=== PATIENT | female | born 1975 | race Caucasian/White ===

== ENCOUNTER 2019-11-12 08:17 | Emergency (ER) | payer OTHER, BC, SELFPAY ==
[2019-11-12 08:27] VITALS: BP 146/102; PULSE 117; RESP 20; TEMP 36.8; O2SAT 98; BMI 24.9
--- NOTE | 2019-11-12 08:34 | ED_ITS ---
HPI - Back Pain/Injury General: Chief Complaint: Back Pain/Injury Stated Complaint: back pain Time Seen by Provider: 11/12/19 08:24 History of Present Illness: HPI Narrative: Patient developed severe right flank pain sudden onset last night. Did work at the [facility] [employer] last night. 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 History of chronic back problems. Patient says this feels like it is different. Feels like it is in her kidney. Denies any dysuria hematuria urgency. Has a history of left kidney donation. History of partial hysterectomy. Denies any trauma. MD elicited complaint: back pain Onset (ago): hour(s) Timing: constant and progressively worsening Severity: moderate Pain scale (0-10): 7 Similar Symptoms Previously: No Quality: sharp and aching Location: right flank Radiation: none Exacerbating factors: movement Relieving factors: none Associated symptoms: Reports no associated symptoms; Deny abdominal pain, chills, fever(s), nausea or vomiting Review of Systems Const: Denies: fever, chills or body aches Eyes: Denies: change in vision or blurry vision ENMT: Denies: throat pain or nasal congestion Card: Denies: chest pain or shortness of breath on exertion Resp: Denies: shortness of breath, productive cough or non-productive cough GI: Denies: abdominal pain, nausea or vomiting : Reports: other (Right flank pain) Musc: Denies: extremity pain Skin/Breast: Denies: rash Neuro: Denies: headache Psych: Denies: anxiety or depression Newton/Lymph: Denies: easy bruising PFSH ED PFSH: Social History Smoking and tobacco status: current every day smoker Physical Exam Const: COMMON NORMALS: no apparent distress, average body habitus and oriented x3 HENMT: COMMON NORMALS: normocephalic HEAD & SCALP: normal to inspection and normocephalic FACE & SINUS: normal facial exam Eye: COMMON NORMALS: conjunctivae normal GENERAL EYE: normal appearance of both eyes CONJUNCTIVA: Yes conjunctivae normal Neck/C-Spine: COMMON NORMALS: no JVD Chest: COMMONS NORMALS: inspection of chest normal Resp: COMMON NORMALS: normal respiratory effort and clear to auscultation bilaterally AUSCULTATION: clear to auscultation bilaterally Cardio: COMMON NORMALS: no JVD, regular rate and regular rhythm RATE: regular rate RHYTHM: regular rhythm GI: COMMON NORMALS: normal to inspection, nondistended, normoactive bowel sounds : BLADDER/KIDNEY EXAM: Yes CVA tenderness Back/Pelvis: GENERAL BACK: Yes CVA tenderness CVA tenderness: right Extremity: COMMON NORMALS: normal to inspection and full ROM Neuro: COMMON NORMALS: oriented x3 Course Vital Signs: Vital signs: Vital Signs Temperature 98.3 F 11/12/19 08:27 Pulse Rate 117 H 11/12/19 08:27 Respiratory Rate 20 H 11/12/19 08:27 Blood Pressure 146/102 11/12/19 08:27 Pulse Oximetry 98 11/12/19 08:27 Coding Level of Care Code ED Clinical Data Abstractor for Shirley Madrid
--- NOTE | 2019-11-12 08:38 | CT_ITS ---
WS: [id number] CT ABDOMEN AND PELVIS NONCONTRAST HISTORY: right flank pain, left kidney donation- hx of hysterectomy TECHNIQUE: Imaging performed through the abdomen and pelvis. Coronal and sagittal reformats are submi tted. All CT scans at [facility] use at least one of these dose optimization techniques: automated exposure control; mA and/or kV adjustment per patient size (includes targeted exams where d ose is matched to clinical indication); or iterative reconstruction. DLP: 950.47 mGy.cm COMPARISON: 01/12/2014 Lower thorax: Mild emphysematous changes at the lung bases. 3 mm nodule along the inferior RIGHT fiss ure in the periphery of the RIGHT lower lobe. Small hiatal hernia. Liver: Normal, no mass or intrahepatic dilatation. Gallbladder: Unremarkable. Pancreas: Normal. Spleen: Normal. Adrenal glands: Normal. Right kidney: Normal size kidney. No renal stones or perinephric inflammation. The RIGHT renal pelvis is very slightly more prominent than it was on the prior study from 2013. No ureteral stone or infla mmation. Left kidney: Status post nephrectomy. Abdominal aorta and IVC are unremarkable. No free fluid, intraperitoneal air or significant lymphadenopathy. GI tract: Prior appendectomy. Mild fecal retention. There are surgical sutures associated with the ce cum probably from the prior appendectomy. Abdominal wall: Intact. Pelvis: Prior hysterectomy. No free fluid in the pelvis. Urinary bladder is only partially distended resulting in mild thickening of the bladder wall. No adjacent inflammation. Bilateral ovarian cysts. The largest on the LEFT measures 2.8 x 1.8 cm. Osseous structures: Mild RIGHT convex curvature lumbar spine. No fractures or bone destruction. Spina bifida occulta at L5. CT/CT kidney stone [id number] IMPRESSION: 1. No RIGHT renal calcification or obstruction. No ureteral calcifications. 2. Prior appendectomy and hysterectomy. 3. No free fluid or ascites. 4. Small bilateral ovarian cysts. 5. Prior LEFT nephrectomy.
[2019-11-12] MEDS: ondansetron 2 mg/ML SDV 2 mL 4 MG IVP (08:54)
[2019-11-12] MEDS: sodium chloride 0.9% 1,000 ML 999 ML IV (08:54)
[2019-11-12] MEDS: ketorolac 30 mg/mL INJ IVP (08:54)
[2019-11-12 09:02] LABS: Basophils # 0.1 10^3/uL (0.0-0.1); Basophils % 0.7 %; Eosinophils # 0.4 10^3/uL (0.0-0.8); Eosinophils % 5.9 %; Hematocrit 43.3 % (37.0-47.0); Lymphocytes # 3.4 10^3/uL (0.8-4.8); Lymphocytes % 49.9 %; Mean Corpuscular HGB Conc 32.3 g/dL (30.0-36.0); Mean Corpuscular Hemoglobin 29.2 pg (28.0-34.0); Mean Corpuscular Volume 90.2 fL (81-99); Mean Platelet Volume 11.2 fL (7.4-10.4); Monocytes # 0.5 10^3/uL (0.2-0.9); Neutrophils # 2.5 10^3/uL (1.8-7.7); Neutrophils % 36.4 %; Nucleated Red Blood Cells % 0 %; Platelet Count 255 10^3/cmm (130-400); Red Cell Distribution Width 13.2 % (12.1-15.1); White Blood Count 6.8 10^3/uL (4.0-10.0)
[2019-11-12 09:02] LABS: Bilirubin Urine Neg (NEGATIVE); Blood Urine Neg (Negative); Glucose Urine UA Norm (Normal); HCG Qualitative Urine. Negative (Negative); Ketones Urine Negative (Negative); Leukocyte Esterase Urine Negative (Negative); Nitrate Urine Negative (Negative); Protein Urine Neg (Negative); Urine Appearance Clear (CLEAR); Urine Color Straw (Yellow); Urobilinogen Urine Norm (Negative)
[2019-11-12 09:09] LABS: Add Urine Culture? No; Bacteria Urine 1+; Mucus Urine TRACE; Squamous Epithelial Cell Urine 15-25 (0-5); WBC Urine 0-4 /hpf (0-5)
[2019-11-12 09:17] LABS: Alanine Aminotransferase 13 U/L (0-33); Albumin Level 4.8 g/dL (3.5-5.2); Alkaline Phosphatase 80 IU/L (35-105); Anion Gap 19.9 (5-19); Aspartate Amino Transferase 17 U/L (0-32); Blood Urea Nitrogen 11 mg/dL (6-20); Calcium 9.9 mg/dL (8.5-10.5); Carbon Dioxide 22 mmol/L (22-29); Chloride 102 mmol/L (98-107); Globulin 2.8 g/dL (1.3-4.6); Glomerular Filtration Rate 60.8 mL/min (90-130); Glucose 100 mg/dL (65-115); Lipase 31 U/L (13-60); Osmolality Calculated 286 mOsm/kg (285-295); Potassium 3.9 mmol/L (3.5-5.1); Sodium 140 mmol/L (136-145); Total Bilirubin 0.3 mg/dL (0.15-1.2); Total Protein 7.6 g/dL (6.6-8.7)
[2019-11-12 09:42] VITALS: BP 109/70; PULSE 81; RESP 17; O2SAT 98
== END 2019-11-12 09:43 | disposition home or self-care (01) ==
PROVIDERS: Emergency Provider Nurse Practitioner Family; Family Provider Nurse Practitioner; PCP Nurse Practitioner
DX: M54.5 Low back pain (principal); F17.200 Nicotine dependence, unspecified, uncomplicated; Z52.4 Kidney donor
CPT/HCPCS: 12345; 36415; 74176; 80053; 81001; 81025; 83690; 85025; 96360; 96361; 96374; 96375; 99283; 99284; J1885; J2405; J7030

== ENCOUNTER → 2020-03-03 14:28 | Outpatient (BNVA) | payer BC, SELFPAY | PROVIDERS: Family Provider Nurse Practitioner; PCP Nurse Practitioner; Visit Provider Nurse Practitioner Family | DX: J02.9 Acute pharyngitis, unspecified (principal) | CPT/HCPCS: 87071; 87880 ==

== ENCOUNTER → 2020-03-15 11:40 | Outpatient (BNVA) | payer OTHER, BC, SELFPAY | PROVIDERS: Family Provider Nurse Practitioner; PCP Nurse Practitioner; Visit Provider Specialist | DX: G43.909 Migraine, unspecified, not intractable, without status migrainosus (principal); M79.7 Fibromyalgia | CPT/HCPCS: 20550; 99214; J1030; J3490 ==

== ENCOUNTER 2020-06-12 12:40 | Outpatient (CLI) | payer OTHER, SELFPAY ==
--- NOTE | 2020-06-12 12:49 | MM_ITS ---
WS: [id number] BILATERAL DIGITAL SCREENING MAMMOGRAPHY WITH CAD CLINICAL INFORMATION: SCREENING HISTORY: Screening mammogram. No current complaints. COMPARISON: [id number] TECHNIQUE: Bilateral CC and MLO views. FINDINGS: The breasts are composed of heterogeneous fibroglandular density tissue, which can limit the detectio n of small underlying mass lesions. No suspicious mass, asymmetry, calcifications, or architectural d istortion. No evidence of malignancy. MM/[place] [id number] IMPRESSION: BI-RADS: 1-Negative FOLLOW UP: 1 Year Follow-up Recommend return to annual screening mammography.
== END 2020-06-12 12:41 | disposition home or self-care (01) ==
LOC: RADSHAW 12:42
PROVIDERS: PCP Nurse Practitioner; Visit Provider Nurse Practitioner
DX: Z12.31 Encounter for screening mammogram for malignant neoplasm of breast (principal)
CPT/HCPCS: 77067

== ENCOUNTER → 2020-11-02 08:06 | Outpatient (BNVA) | payer OTHER, SELFPAY | PROVIDERS: PCP Nurse Practitioner; Referring Provider Emergency Medicine Emergency Medical Services; Visit Provider Specialist | DX: M25.511 Pain in right shoulder (principal) | CPT/HCPCS: 73030 ==

== ENCOUNTER 2020-11-21 14:48 | Outpatient (CLI) | payer OTHER, SELFPAY ==
--- NOTE | 2020-11-21 15:15 | MR_ITS ---
WS: [id number] MRI RIGHT SHOULDER HISTORY: M25.511 - Pain in right shoulder COMPARISON: 03/20/2018. Radiograph 11/02/2020 TECHNIQUE: Multiplanar sequences of the shoulder joint are submitted. Very mild hypertrophic changes and joint space narrowing of the AC joint. Very minimal osteophytosis along the distal undersurface of the acromion. Slight encroachment upon the supraspinatus tendon and muscle. Small amount of fluid in the subdeltoid bursa. No os acromion. Biceps tendon remains in harlan l position. The tendon is thin with mild increased signal distal to the bicipital groove. No rotator cuff tear is identified. There is no muscle atrophy or edema. There is mild narrowing of t he coracohumeral interval by osteophytes. There is mild encroachment upon the biceps tendon and subsc apularis tendon. No significant amount of fluid or ganglion cyst in the subscapularis recess. No labr al tear. MR/MR shoulder RT wo con* [id number] IMPRESSION: 1. Mild AC joint arthritis. No progression since 2018. 2. No rotator cuff tear. 3. Mild thinning of the biceps tendon with tendinopathy. No displacement. 4. Narrowing of the coracohumeral interval causing mild encroachment upon the biceps tendon and subscapularis tendon. 5. Very small amount of fluid in the subdeltoid bursa.
== END 2020-11-21 14:49 | disposition home or self-care (01) ==
LOC: RADSHAW 14:50
PROVIDERS: PCP Nurse Practitioner; Visit Provider Specialist
DX: M13.811 Other specified arthritis, right shoulder (principal)
CPT/HCPCS: 73221

== ENCOUNTER → 2021-01-31 14:08 | Outpatient (BNVA) | payer OTHER, SELFPAY | PROVIDERS: PCP Nurse Practitioner; Visit Provider Specialist | DX: G43.711 Chronic migraine without aura, intractable, with status migrainosus (principal); M54.5 Low back pain; Z87.891 Personal history of nicotine dependence | CPT/HCPCS: 99214 ==

== ENCOUNTER 2021-03-01 14:17 | Outpatient (CLI) | payer OTHER, SELFPAY ==
--- NOTE | 2021-03-01 17:30 | MR_ITS ---
WS: [id number] MRI LUMBAR SPINE NONCONTRAST TECHNIQUE: Sagittal T1, T2 and STIR imaging. Axial T1 and T2 imaging. CLINICAL INFORMATION: M54.9 - Dorsalgia, unspecified COMPARISON: None. FINDINGS: Counting performed from the craniocervical junction. S1 is partially lumbarized. Mild lumbar curve. No acute compression. No high-grade central canal stenosis. L1-L2: Normal L2-L3: No significant disc bulging. Spinal canal and foramen are patent. L3-L4: Mild right and no significant left foraminal narrowing. Spinal canal is patent. L4-L5: Minimal annular bulging. Mild right and no significant left foraminal narrowing. Mild facet ar thropathy. L5-S1: Mild disc osteophyte complex with endplate ridging. Slight effacement of the ventral thecal sa c with slight contact of the traversing S1 nerve roots. Mild left and no significant right foraminal narrowing. Moderate facet arthropathy. S1-S2: S1 is lumbarized. No significant disc bulging. Spinal canal and foramen are patent. Visualized pelvic bony structures: Normal. Paravertebral soft tissues: Normal. MR/MR lumbar spine wo con* [id number] IMPRESSION: 1. Mild lumbar curve. No acute compression. No high-grade central canal stenos is. 2. S1 is lumbarized. Recommend plain film correlation prior to surgical interv ention. 3. Mild disc bulging L5-S1 with osteophytic ridging. Slight contact of the tra versing S1 nerve roots bilaterally. Mild left L5-S1 bony foraminal narrowing. 4. Mild right L4-5 foraminal narrowing. 5. Mild right L3-4 foraminal narrowing. 6. Mild to moderate facet arthropathy L4-L5 and L5-S1.
== END 2021-03-01 14:18 | disposition home or self-care (01) ==
LOC: RADSHAW 14:19
PROVIDERS: PCP Nurse Practitioner; Visit Provider Specialist
DX: M47.816 Spondylosis without myelopathy or radiculopathy, lumbar region (principal); M47.817 Spondylosis without myelopathy or radiculopathy, lumbosacral region; M51.27 Other intervertebral disc displacement, lumbosacral region; Q76.49 Other congenital malformations of spine, not associated with scoliosis
CPT/HCPCS: 72148

== ENCOUNTER 2021-03-13 13:05 | Outpatient (RCR) | payer OTHER, SELFPAY | END 2021-04-10 23:59 | disposition home or self-care (01) | LOC: SPT 13:05 | PROVIDERS: PCP Nurse Practitioner; Referring Provider Nurse Practitioner; Visit Provider Nurse Practitioner | DX: M54.5 Low back pain (principal) | CPT/HCPCS: 97110; 97161; G0283 ==

== ENCOUNTER 2021-07-07 10:59 | Emergency (ER) | payer OTHER, BC, SELFPAY ==
--- NOTE | 2021-07-07 | CTR_ITS ---
PROCEDURE INFORMATION: Exam: CT Abdomen And Pelvis With Contrast Exam date and time: 07/07/2021 2:27 PM Age: 45 years old Clinical indication: Abdominal pain. Prior hysterectomy and kidney donation. Epigastric/chest pain. TECHNIQUE: Imaging protocol: Computed tomography of the abdomen and pelvis with contrast. Radiation optimization: All CT scans at this facility use at least one of these dose optimization techniques: automated exposure control; mA and/or kV adjustment per patient size (includes targeted exams where dose is matched to clinical indication); or iterative reconstruction. Contrast material: VISI 320; Contrast volume: 95 ml; Contrast route: INTRAVENOUS (IV); COMPARISON: CT kidney stone [id number] 11/12/2019 9:04 AM RADIATION DOSE METRICS: Total DLP (mGy-cm): 1513.55 FINDINGS: Liver: The liver is enlarged measuring 17.8 cm. Gallbladder and bile ducts: The gallbladder is unremarkable. Pancreas: The pancreas is unremarkable. Spleen: The spleen is unremarkable. Adrenal glands: The adrenal glands are unremarkable. Kidneys and ureters: Status post left nephrectomy. The right kidney is unremarkable. Stomach and bowel: The stomach and small bowel are unremarkable.. Moderate gas and stool in the colon; query constipation. Appendix: The appendix has been removed. Intraperitoneal space: No free intraperitoneal air is seen. Vasculature: No abdominal aortic aneurysm. Lymph nodes: No retroperitoneal lymphadenopathy. Urinary bladder: The bladder is distended with urine. Reproductive: Probable complex or corpus luteum cyst in the right ovary measuring 1.8 cm. There is a separate probable complex or hemorrhagic cyst in the right ovary measuring 1.6 cm. Probable simple cyst in the right ovary measuring 1.3 cm. Status post hysterectomy. Bones/joints: No acute fracture is identified. CT/CT abdomen pelvis w con* [id number] IMPRESSION: 1. Probable complex, hemorrhagic or corpus luteum cysts in the right ovary. Separate probable simple cyst in the right ovary. Consider pelvic ultrasound to better characterize. 2. Moderate gas and stool in the colon; query constipation. 3. Hepatomegaly. 4. Please see dedicated CT of the chest for associated findings. Radiation Dose CTDIVOL = (mGy): DLP = 1513.55 (mGy-cm)
--- NOTE | 2021-07-07 | CTR_ITS ---
PROCEDURE INFORMATION: Exam: CT Chest Without Contrast; Diagnostic Exam date and time: 07/07/2021 2:09 PM Age: 45 years old Clinical indication: Sternal or substernal pain. Complains of chest/epigastric pain with abnormal chest x-ray. TECHNIQUE: Imaging protocol: Diagnostic computed tomography of the chest without contrast. Radiation optimization: All CT scans at this facility use at least one of these dose optimization techniques: automated exposure control; mA and/or kV adjustment per patient size (includes targeted exams where dose is matched to clinical indication); or iterative reconstruction. COMPARISON: CT chest w con* [id number] 07/07/2021 1:41 PM RADIATION DOSE METRICS: Total DLP (mGy-cm): 518.006 FINDINGS: Lungs: Solid pulmonary nodule in the right lower lobe measuring 3.7 mm (image 42). Solid subpleural pulmonary nodule in the right lower lobe measuring 3 mm (image 43). Solid subpleural pulmonary nodule at the right base measuring 3.4 mm (image 43). Subpleural pulmonary nodule in the right upper lobe measuring 2.9 mm (image 18). No pulmonary consolidation.. No pulmonary mass. Pleural spaces: No pleural effusion.. No pneumothorax. Heart: No pericardial effusion. Aorta: No thoracic aortic aneurysm. Lymph nodes: No significant mediastinal lymphadenopathy. Diaphragm: Small hiatal hernia. Bones/joints: No acute fracture is identified. CT/CT chest con [id number] IMPRESSION: 1. Solid pulmonary nodules measuring up to 3.7 mm. As per Fleischner Society 2017 guidelines for follow-up and management of pulmonary nodules: For patients at low risk (minimal or absent history of smoking and of other known risk factors), no routine follow-up. For patient at high risk (history of smoking or of other known risk factors), recommend optional CT at 12 months. 2. Please see dedicated CT of the abdomen and pelvis for associated findings. Radiation Dose CTDIVOL = (mGy): DLP = 518.006 (mGy-cm)
[2021-07-07 11:11] VITALS: BP 128/62; PULSE 81; RESP 22; TEMP 37; O2SAT 97; BMI 30.5
--- NOTE | 2021-07-07 11:18 | ED_ITS ---
HPI - Chest Pain General: Chief Complaint: Chest Pain Stated Complaint: cp Time Seen by Provider: 07/07/21 11:18 History of Present Illness: HPI narrative: Ms. Monterroso is a 45-year-old lady with significant past medical history of tobaccoism (quit smoking a number of years ago) and hyperlipidemia not on medication who presents to the emergency department due to chest pain. She reports symptom onset yesterday while at rest watching her daughter's wedding. She describes midsternal sharp pain with radiation of the shoulder and numbness feeling in her left arm. There was mild associated shortness of breath, chills, and nausea without vomiting. She reports that she has not had a frequent history of chest pain and has no known cardiac history with exception of a rapid heart rate of unclear etiology as a child. Overall the course of symptoms has persisted. Intensity is moderate. No known specific exacerbating or alleviating factors. No other changes in health reported. Review of Systems General: Reports: 10 or more systems reviewed and unremarkable except in HPI and below PFSH ED PFSH: Medical History Chronic migraine without aura, intractable, with status migrainosus Family History Other CAD (coronary artery disease) Cancer Diabetes Hypertension Social History Smoking and tobacco status: former smoker History of recent travel: No Physical Exam Narrative: EXAM NARRATIVE: GENERAL/CONSTITUTIONAL - well-appearing. No acute distress. Eyes - PERRL, no conjunctival injection ENMT - Atraumatic external nose and ears. Moist mucous membranes NECK - supple. trachea midline CARDIOVASCULAR - regular rate and rhythm. No peripheral edema RESPIRATORY -clear to auscultation bilaterally. ABDOMEN/GI - Nontender/Nondistended. MSK - Extremities without obvious deformity or tenderness to palpation SKIN - Warm, Dry NEURO - alert and appropriately oriented. Moves all extremities equally. Course ED course: - Patient was seen and evaluated by me at bedside - Patient placed on cardiac monitors, IV access obtained - Initial evaluation notable for no acute distress, nontoxic appearance. -Symptom treatment ordered - Labs notable for No leukocytosis, no acute metabolic abnormality to explain the patient's symptoms. Delta troponin negative. - Imaging notable for chest x-ray notable for prominence of the right paratracheal stripe, given patient's chest pain in the absence of other acute finding CT as recommended felt to be warranted. CT chest was ordered, unfortunately the patient erroneously received a CT abdomen pelvis, given history of [address] chest performed without contrast. IV fluids ordered. Pulmonary nodules were discussed with the patient. Pelvic cysts/abnormalities were discussed with the patient. Given absence of abdominal symptoms ED ordered pelvic ultrasound not warranted at this time, patient comfortable with outpatient pelvic ultrasound. - Upon serial reexamination after treatment the patient was mildly improved - Based on patient history, evaluation, labs, and imaging as interpreted the most likely cause of the patient's condition is chest pain of unclear etiology. Patient is low risk by heart score - The results of ED evaluation were discussed with the patient including prescriptions and/or symptomatic cares (if applicable) including appropriate and responsible use, followup plan, and return precautions. The patient verbalized understanding and felt safe for discharge. - Patient discharged in satisfactory condition. Vital Signs: Vital signs: Vital Signs Temperature 98.6 F 07/07/21 11:11 Pulse Rate 88 07/07/21 15:26 Respiratory Rate 18 07/07/21 15:26 Blood Pressure 104/68 07/07/21 15:26 Pulse Oximetry 96 07/07/21 15:26 MDM - Chest Pain Medical Records: Attestation: I reviewed the patient's medical records. Lab Data: Attestation: I reviewed the patient's lab results. Labs: Lab Results 07/07/21 07/07/21 07/07/21 11:17 11:17 11:17 WBC 6.4 10^3/uL 10^3/ uL (4.0-10.0) RBC 5.00 10^6/uL 10^6 /uL (4.1-5.3) Hgb 14.3 g/dL g/dL (11.5-15.3) Hct 44.4 % % (37.0-47.0) MCV 88.8 fl fl (81-99) MCH 28.6 pg pg (28.0-34.0) MCHC 32.2 g/dL g/dL (30.0-36.0) RDW 13.9 % % (12.1-15.1) Plt Count 243 10^3/cmm 10^3 /cmm (130-400) MPV 12.6 fL H fL (7.4-10.4) Neut % (Auto) 39.0 % % Lymph % (Auto) 42.7 % % Thomas % (Auto) 10.3 % % Eos % (Auto) 6.6 % % Baso % (Auto) 0.8 % % Neut # (Auto) 2.49 10^3/uL 10^3 /uL (1.8-7.7) Lymph # (Auto) 2.7 10^3/uL 10^3/ uL (0.8-4.8) Thomas # (Auto) 0.7 10^3/uL 10^3/ uL (0.2-0.9) Eos # (Auto) 0.4 10^3/uL 10^3/ uL (0.0-0.8) Baso # (Auto) 0.1 10^3/uL 10^3/ uL (0.0-0.1) Nucleated RBC % (a uto) 0 % % Nucleated RBCs # 0.0 /100WBC /100W BC Sodium 138 mmol/L mmol/L (136-145) Potassium 3.8 mmol/L mmol/L (3.5-5.1) Chloride 104 mmol/L mmol/L (98-107) Carbon Dioxide 20 mmol/L L mmol/ L (22-29) Anion Gap 17.8 (5-19) BUN 20 mg/dL mg/dL (6-20) Creatinine 1.0 mg/dL H mg/dL (0.5-0.9) GFR Calculation 60.5 mL/min L mL/ min (90-130) Glucose 94 mg/dL mg/dL (65-115) Calculated Osmolal ity 288 mOsm/kg mOsm/ kg (285-295) Calcium 8.8 mg/dL mg/dL (8.5-10.5) Total Bilirubin 0.2 mg/dL mg/dL (0.15-1.2) AST 12 U/L U/L (0-32) ALT 11 U/L U/L (0-33) Alkaline Phosphata se 91 IU/L IU/L (35-105) Troponin T Baselin e 6 ng/L ng/L (0-10) Troponin T 120 Min [place] Troponin T NT-Pro-B Natriuret Pep 83 pg/mL pg/mL (0-125) Total Protein 7.4 g/dL g/dL (6.6-8.7) Albumin 4.2 g/dL g/dL (3.5-5.2) Globulin 3.2 g/dL g/dL (1.3-4.6) Lipase 40 U/L U/L (13-60) 07/07/21 13:29 WBC RBC Hgb Hct MCV MCH MCHC RDW Plt Count MPV Neut % (Auto) Lymph % (Auto) Thomas % (Auto) Eos % (Auto) Baso % (Auto) Neut # (Auto) Lymph # (Auto) Thomas # (Auto) Eos # (Auto) Baso # (Auto) Nucleated RBC % (a uto) Nucleated RBCs # Sodium Potassium Chloride Carbon Dioxide Anion Gap BUN Creatinine GFR Calculation Glucose Calculated Osmolal ity Calcium Total Bilirubin AST ALT Alkaline Phosphata se Troponin T Baselin e Troponin T 120 Min [place] 6.00 ng/L ng/L (0-10) Delta Troponin T 0 ABS# ABS# (0-10) NT-Pro-B Natriuret Pep Total Protein Albumin Globulin Lipase EKG Data^: EKG 1: Attestation: I personally reviewed and interpreted this EKG as follows: EKG interpretation date: 07/07/21 EKG interpretation time: 11:16 Interpretation: Twelve-lead EKG shows a regular rhythm at a rate of 77. WI interval 148, QRS duration 109, QTc 423. Normal axis. Interpretation: Sinus rhythm. EKG 2: Attestation: I personally reviewed and interpreted this EKG as follows: EKG interpretation date: 07/07/21 EKG interpretation time: 13:12 Interpretation: Twelve-lead EKG shows a regular rhythm at a rate of 75. WI interval 157, QRS duration 110, QTc 421. Normal axis. Interpretation: Sinus rhythm. Discharge Plan Discharge Patient Disposition: Home Clinical Impression: Chest pain, Multiple pulmonary nodules Condition: Stable Prescriptions: No Action bupropion HCl 300 mg tablet extended release 24 hr 300 mg PO QAM RF: 0 fluoxetine 20 mg capsule 20 mg PO DAILY RF: 0 Aimovig Autoinjector 140 mg/mL auto-injector 140 mg SUBCUT Q30D Qty: 1 RF: 5 sumatriptan succinate [Imitrex] 100 mg Tablet 100 mg PO Q2H PRN (Reason: Headache) RF: 0 promethazine 25 mg Tablet 25 mg PO DAILY PRN (Reason: Nausea) RF: 0 montelukast 10 mg Tablet 10 mg PO DAILY RF: 0 Discharge Orders: Discharge ED (Routine); Ordered 07/07/21 Ordered By: Ap Oconnell Referrals: Mi Li FNP [Primary Care Provider] - Discharge Diet: Usual diet Discharge Activity: Resume usual activity Patient Instructions: Chest Pain (ED) Activity Restrictions/Additional Instructions: Thank you for visiting the emergency department. You were seen and evaluated for chest pain. The exact cause of your symptoms is unclear, based on risk stratification it is safe to have you follow-up as an outpatient for further cardiac evaluation. A number of incidental findings were noted on imaging. You were noted to have multiple pulmonary nodules including a solid pulmonary nodules measuring up to 3.7 mm. Based on your history of smoking radiology guidelines recommend an optional CT scan at 12 months to reassess for stability. Additionally you were noted to have Probable complex, hemorrhagic or corpus luteum cysts in the right ovary. Separate probable simple cyst in the right ovary. I recommend an outpatient pelvic ultrasound which can be ordered by your primary care provider. Please follow-up with your primary care provider. Please follow-up with cardiology. Please return to the emergency department for worsening symptoms or anything else that you are concerned about and feel needs emergency department evaluation. Coding Level of Care Code ED Cro for Shirley Madrid
--- NOTE | 2021-07-07 11:30 | XRR_ITS ---
PROCEDURE INFORMATION: Exam: XR Chest Exam date and time: 07/07/2021 11:30 AM Age: 45 years old Clinical indication: Chest pain/pressure. TECHNIQUE: Imaging protocol: XR of the chest. Views: 1 view. COMPARISON: MR shoulder RT wo con* [id number] 11/21/2020 2:59 PM FINDINGS: Lungs: No pulmonary consolidation. Pleural spaces: No pleural effusion.. No pneumothorax. Heart/Mediastinum: The cardiac silhouette is unremarkable. There is prominence of the right paratracheal stripe which may reflect prominent superimposed vascular structures. No gross evidence of pneumomediastinum. Bones/joints: No gross fracture. XR/XR chest 1V portable [id number] IMPRESSION: There is prominence of the right paratracheal stripe which may reflect prominent superimposed vascular structures. Consider CT chest to further assess if clinically warranted. Radiation Dose CTDIVOL = (mGy): DLP = (mGy-cm)
--- NOTE | 2021-07-07 11:30 | ECG_ITS ---
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
[2021-07-07] MEDS: aspirin 81 mg Chew Tablet 324 MG PO (11:36)
[2021-07-07] MEDS: nitroglycerin 0.4 mg sublingual Tablet SUBLINGUAL ×3 (11:37→12:01)
[2021-07-07 12:01] LABS: Basophils # 0.1 10^3/uL (0.0-0.1); Basophils % 0.8 %; Eosinophils # 0.4 10^3/uL (0.0-0.8); Eosinophils % 6.6 %; Hematocrit 44.4 % (37.0-47.0); Hemoglobin 14.3 g/dL (11.5-15.3); Lymphocytes # 2.7 10^3/uL (0.8-4.8); Lymphocytes % 42.7 %; Mean Corpuscular HGB Conc 32.2 g/dL (30.0-36.0); Mean Corpuscular Hemoglobin 28.6 pg (28.0-34.0); Mean Corpuscular Volume 88.8 fl (81-99); Mean Platelet Volume 12.6 fL (7.4-10.4); Monocytes # 0.7 10^3/uL (0.2-0.9); Monocytes % 10.3 %; Neutrophils # 2.49 10^3/uL (1.8-7.7); Nucleated Red Blood Cells % 0 %; Platelet Count 243 10^3/cmm (130-400); Red Cell Distribution Width 13.9 % (12.1-15.1); White Blood Count 6.4 10^3/uL (4.0-10.0)
[2021-07-07 12:13] LABS: Troponin(5th) Baseline 6 ng/L (0-10)
[2021-07-07 12:23] LABS: Alanine Aminotransferase 11 U/L (0-33); Albumin Level 4.2 g/dL (3.5-5.2); Alkaline Phosphatase 91 IU/L (35-105); Anion Gap 17.8 (5-19); Aspartate Amino Transferase 12 U/L (0-32); Blood Urea Nitrogen 20 mg/dL (6-20); Calcium 8.8 mg/dL (8.5-10.5); Carbon Dioxide 20 mmol/L (22-29); Chloride 104 mmol/L (98-107); Globulin 3.2 g/dL (1.3-4.6); Glomerular Filtration Rate 60.5 mL/min (90-130); Glucose 94 mg/dL (65-115); Lipase 40 U/L (13-60); NT Pro B Type Natriuretic Pept 83 pg/mL (0-125); Osmolality Calculated 288 mOsm/kg (285-295); Potassium 3.8 mmol/L (3.5-5.1); Sodium 138 mmol/L (136-145); Total Bilirubin 0.2 mg/dL (0.15-1.2); Total Protein 7.4 g/dL (6.6-8.7)
--- NOTE | 2021-07-07 12:53 | PC.NURSE ---
GI cocktail and Toradol held for now due to pt sleeping.
[2021-07-07] MEDS: lidocaine 2% viscous 15 ML, aluminum-mag hydrox-simethicon 30 ML, sucralfate oral liq 1 GM PO (13:13)
[2021-07-07] MEDS: ketorolac 30 mg/mL INJ 15 MG IVP (13:14)
--- NOTE | 2021-07-07 13:30 | ECG_ITS ---
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
[2021-07-07 13:52] VITALS: BP 143/85; PULSE 78; RESP 18; O2SAT 98
[2021-07-07 14:02] LABS: Troponin 5 2HR Delta 0 ABS# (0-10)
[2021-07-07 15:26] VITALS: BP 104/68; PULSE 88; RESP 18; O2SAT 96
--- NOTE | 2021-07-11 10:04 | DCPLANNER ---
workshop manager had message to schedule an outpatient stress test for patient. Patient has [employer] insurance, porter sample case is unable to schedule a stress test, porter sample case can refer [facility] to [facility], and if [facility] feels that patient needs a stress test, then [facility] can order a stress test. workshop manager called [facility], spoke with Jeanine, gave clinic patients information. A follow up appointment was scheduled for Friday, July 25, 2021 at 9:15 with Doroteo Musa. workshop manager called patient and explained all of this to the patient, and gave patient the appointment information. workshop manager emailed all of patients information to Lulu with [facility], so that the authorization process can be started.
--- NOTE | 2021-08-08 15:30 | DCPLANNER ---
Patient had a follow up appointment scheduled for 07.25.21 with [facility] - patient did attend appointment.
== END 2021-07-07 15:26 | disposition home or self-care (01) ==
PROVIDERS: Emergency Provider Emergency Medicine; PCP Nurse Practitioner
DX: R07.9 Chest pain, unspecified (principal); R91.8 Other nonspecific abnormal finding of lung field; Z87.891 Personal history of nicotine dependence
CPT/HCPCS: 36415; 71045; 71250; 71260; 80053; 83690; 83880; 84484; 85025; 93005; 96374; 99283; J1885

== ENCOUNTER 2021-07-15 20:28 | Emergency (ER) | payer OTHER, BC, SELFPAY ==
[2021-07-15] VITALS (39 sets, daily range): BP systolic 92–129; BP diastolic 44–85; PULSE 125; RESP 16; TEMP 38.7; O2SAT 92–99
--- NOTE | 2021-07-15 20:46 | ED_ITS ---
Documented by User: Ap Oconnell MD 07/21/21 01:03 HPI - COVID General: Chief Complaint: COVID symptoms Stated Complaint: Chest pain, Fever, sore throat, Headach Time Seen by Provider: 07/15/21 20:46 Triage information: Has fever, cough or shortness of breath . Exposure to COVID + person last 14 days History of Present Illness: HPI Narrative: Ms. Monterroso is a 45-year-old lady with significant past medical history of fibromyositis who presents to the emergency department due to generalized symptoms. Symptom onset was subacute approximately 2 days ago. She endorses headache, mild associated luis eduardo tosensitivity consistent with prior headaches, sore throat, cough, nausea and vomiting. Since symptom onset overall the course is worsening. She has tried pthb-wsp-opodkme medications without significant relief. Additionally she has tried Imitrex. She does have sick exposures but is not tested positive for Covid. No other specific exacerbating or relieving factors identified. COVID Results: SARS-CoV-2 Antigen (Rapid) Negative (Negative) 07/15/21 21:34 07/15/21 Review of Systems General: Reports: 10 or more systems reviewed and unremarkable except in HPI and below PFSH ED PFSH: Medical History Chronic migraine without aura, intractable, with status migrainosus Family History Other CAD (coronary artery disease) Cancer Diabetes Hypertension Social History Smoking and tobacco status: former smoker History of recent travel: No Physical Exam Narrative: EXAM NARRATIVE: GENERAL/CONSTITUTIONAL -somewhat ill-appearing. No acute distress. Eyes - PERRL, no conjunctival injection ENMT -bmild posterior pharyngeal erythema. Atraumatic external nose and ears. Moist mucous membranes NECK - supple. trachea midline. No meningitic signs CARDIOVASCULAR -tachycardic rate and regular rhythm. Normal peripheral perfusion RESPIRATORY -clear to auscultation bilaterally. No retractions or accessory muscle use. ABDOMEN/GI - Nontender/Nondistended. No tenderness to percussion or evidence of peritonitis MSK - Extremities without obvious deformity or tenderness to palpation SKIN - Warm, Dry NEURO - alert and appropriately oriented. Moves all extremities equally. Course ED course: - Patient was seen and evaluated by me at bedside - Patient placed on cardiac monitors, IV access obtained - Initial evaluation notable for somewhat ill appearance, no acute distress. Nontoxic. Tachycardia. -Symptom treatment ordered - Labs notable for mild leukocytosis. Metabolic panel with mild evidence of dehydration. Rapid Covid negative. Flu negative. Strep negative. - Imaging notable for negative chest - I discussed the evaluation at this point as well as somewhat unimpressive findings given persistent tachycardia. After discussion I will proceed with D- dimer to rule out PE. - Patient care handed off to overnight ED physician Dr. Valenzuela pending completion of CTA given positive D-dimer and reevaluation patient's condition. Vital Signs: Vital signs: Vital Signs Temperature 101.7 F H 07/15/21 20:35 Pulse Rate 125 H 07/15/21 20:35 Respiratory Rate 16 07/15/21 20:35 Blood Pressure 100/57 07/16/21 01:00 Pulse Oximetry 95 07/16/21 01:00 MDM - COVID Medical Records: Attestation: I reviewed the patient's medical records. Lab Data: Attestation: I reviewed the patient's lab results. Labs: Lab Results 07/15/21 07/15/21 07/15/21 21:06 21:34 21:34 WBC 10.9 10^3/uL H 10 ^3/uL (4.0-10.0) RBC 5.21 10^6/uL 10^6 /uL (4.1-5.3) Hgb 14.7 g/dL g/dL (11.5-15.3) Hct 46.2 % % (37.0-47.0) MCV 88.7 fl fl (81-99) MCH 28.2 pg pg (28.0-34.0) MCHC 31.8 g/dL g/dL (30.0-36.0) RDW 13.9 % % (12.1-15.1) Plt Count 248 10^3/cmm 10^3 /cmm (130-400) MPV 12.4 fL H fL (7.4-10.4) Neut % (Auto) 73.3 % % Lymph % (Auto) 18.0 % % [place] % (Auto) 7.5 % % Eos % (Auto) 0.3 % % Baso % (Auto) 0.4 % % Neut # (Auto) 7.97 10^3/uL H 10 ^3/uL (1.8-7.7) Lymph # (Auto) 2.0 10^3/uL 10^3/ uL (0.8-4.8) [place] # (Auto) 0.8 10^3/uL 10^3/ uL (0.2-0.9) Eos # (Auto) 0.0 10^3/uL 10^3/ uL (0.0-0.8) Baso # (Auto) 0.0 10^3/uL 10^3/ uL (0.0-0.1) Nucleated RBC % (a uto) 0 % % Nucleated RBCs # 0.0 /100WBC /100W BC D-Dimer Specimen Type Arterial Sample Site Radial, right ABG pH 7.45 (7.35-7.45) ABG pCO2 30.9 mmHg L mmHg (35-45) ABG pO2 66.4 mmHg L mmHg (80.0-100.0) ABG HCO3 21.6 mmol/L L mmo l/L (22-26) ABG Base Excess -1.4 mmol/L mmol/ L (-2.0-2.0) Isaias Test Pos Hematocrit 42.3 % % (37-47) O2 Delivery Device Room air Director Of Tax Services ID [email or web address] Sodium 135 mmol/L L mmol /L (136-145) Potassium 4.0 mmol/L mmol/L (3.5-5.1) Chloride 100 mmol/L mmol/L (98-107) Carbon Dioxide 18 mmol/L L mmol/ L (22-29) Anion Gap 21.0 H (5-19) BUN 13 mg/dL mg/dL (6-20) Creatinine 1.2 mg/dL H mg/dL (0.5-0.9) GFR Calculation 49.0 mL/min L mL/ min (90-130) Glucose 90 mg/dL mg/dL (65-115) Calculated Osmolal ity 280 mOsm/kg L mOs m/kg (285-295) Lactate Calcium 8.9 mg/dL mg/dL (8.5-10.5) Magnesium 1.7 mg/dL mg/dL (1.7-2.3) Total Bilirubin 0.2 mg/dL mg/dL (0.15-1.2) AST 11 U/L U/L (0-32) ALT 10 U/L U/L (0-33) Alkaline Phosphata se 105 IU/L IU/L (35-105) Troponin T Baselin e Troponin T 120 Min [place] Troponin T C-Reactive Protein 50.8 mg/L H mg/L (0.0-4.9) Total Protein 7.2 g/dL g/dL (6.6-8.7) Albumin 4.6 g/dL g/dL (3.5-5.2) Globulin 2.6 g/dL g/dL (1.3-4.6) Procalcitonin 0.16 ng/mL ng/mL (0-0.5) TSH 0.47 uIU/mL uIU/m L (0.27-4.20) Influenza Type A A g Influenza Type B A g SARS-CoV-2 Ag (Rap id) Group A Strep Rapi d 07/15/21 07/15/21 07/15/21 21:34 21:34 21:34 WBC RBC Hgb Hct MCV MCH MCHC RDW Plt Count MPV Neut % (Auto) Lymph % (Auto) [place] % (Auto) Eos % (Auto) Baso % (Auto) Neut # (Auto) Lymph # (Auto) [place] # (Auto) Eos # (Auto) Baso # (Auto) Nucleated RBC % (a uto) Nucleated RBCs # D-Dimer 0.61 ug/mIFEU H u g/mIFEU (0-0.59) Specimen Type Sample Site ABG pH ABG pCO2 ABG pO2 ABG HCO3 ABG Base Excess Isaias Test Hematocrit O2 Delivery Device Director Of Tax Services ID Sodium Potassium Chloride Carbon Dioxide Anion Gap BUN Creatinine GFR Calculation Glucose Calculated Osmolal ity Lactate 1.0 mmol/L mmol/L (0.5-2.2) Calcium Magnesium Total Bilirubin AST ALT Alkaline Phosphata se Troponin T Baselin e 6 ng/L ng/L (0-10) Troponin T 120 Min [place] Troponin T C-Reactive Protein Total Protein Albumin Globulin Procalcitonin TSH Influenza Type A A g Influenza Type B A g SARS-CoV-2 Ag (Rap id) Group A Strep Rapi d 07/15/21 07/15/21 07/15/21 21:34 21:34 21:34 WBC RBC Hgb Hct MCV MCH MCHC RDW Plt Count MPV Neut % (Auto) Lymph % (Auto) [place] % (Auto) Eos % (Auto) Baso % (Auto) Neut # (Auto) Lymph # (Auto) [place] # (Auto) Eos # (Auto) Baso # (Auto) Nucleated RBC % (a uto) Nucleated RBCs # D-Dimer Specimen Type Sample Site ABG pH ABG pCO2 ABG pO2 ABG HCO3 ABG Base Excess Isaias Test Hematocrit O2 Delivery Device Director Of Tax Services ID Sodium Potassium Chloride Carbon Dioxide Anion Gap BUN Creatinine GFR Calculation Glucose Calculated Osmolal ity Lactate Calcium Magnesium Total Bilirubin AST ALT Alkaline Phosphata se Troponin T Baselin e Troponin T 120 Min [place] Troponin T C-Reactive Protein Total Protein Albumin Globulin Procalcitonin TSH Influenza Type A A g Negative (Negative) Influenza Type B A g Negative (Negative) SARS-CoV-2 Ag (Rap id) Negative (Negative) Group A Strep Rapi d Negative (Negative) 07/15/21 22:59 WBC RBC Hgb Hct MCV MCH MCHC RDW Plt Count MPV Neut % (Auto) Lymph % (Auto) [place] % (Auto) Eos % (Auto) Baso % (Auto) Neut # (Auto) Lymph # (Auto) [place] # (Auto) Eos # (Auto) Baso # (Auto) Nucleated RBC % (a uto) Nucleated RBCs # D-Dimer Specimen Type Sample Site ABG pH ABG pCO2 ABG pO2 ABG HCO3 ABG Base Excess Isaias Test Hematocrit O2 Delivery Device Director Of Tax Services ID Sodium Potassium Chloride Carbon Dioxide Anion Gap BUN Creatinine GFR Calculation Glucose Calculated Osmolal ity Lactate Calcium Magnesium Total Bilirubin AST ALT Alkaline Phosphata se Troponin T Baselin e Troponin T 120 [address] [place] 7.26 ng/L ng/L (0-10) Delta Troponin T 1.26 ABS# ABS# (0-10) C-Reactive Protein Total Protein Albumin Globulin Procalcitonin TSH Influenza Type A A g Influenza Type B A g SARS-CoV-2 Ag (Rap id) Group A Strep Rapi d EKG Data: EKG 1: Attestation: I personally reviewed and interpreted this EKG as follows: EKG interpretation date: 07/15/21 EKG interpretation time: 20:47 Interpretation: Twelve-lead EKG shows a regular rhythm at a rate of 137. [place] interval 136, QRS duration 98, QTc 388. Normal axis. Interpretation: Sinus tachycardia. Nonspecific ST segment abnormalities which are likely rate related COVID Results: SARS-CoV-2 Antigen (Rapid) Negative (Negative) 07/15/21 21:34 07/15/21 Discharge Plan Discharge Patient Disposition: Home Clinical Impression: Acute febrile illness, Viral infection Condition: Stable Prescriptions: No Action bupropion HCl 300 mg tablet extended release 24 hr 300 mg PO QAM RF: 0 fluoxetine 20 mg capsule 20 mg PO DAILY RF: 0 Aimovig Autoinjector 140 mg/mL auto-injector 140 mg SUBCUT Q30D Qty: 1 RF: 5 sumatriptan succinate [Imitrex] 100 mg Tablet 100 mg PO Q2H PRN (Reason: Headache) RF: 0 promethazine 25 mg Tablet 25 mg PO DAILY PRN (Reason: Nausea) RF: 0 montelukast 10 mg Tablet 10 mg PO DAILY RF: 0 Discharge Orders: Discharge ED (Routine); Ordered 07/16/21 Ordered By: Serge Valenzuela Referrals: Mi Li FNP [Primary Care Provider] - 1-3 days Discharge Diet: Advance as tolerated Discharge Activity: Limit activity as instructed Patient Instructions: Fever in Adults (ED), Viral Syndrome (ED) Activity Restrictions/Additional Instructions: Monitor your temperature closely and treat accordingly. Return for inability to control temperature, vomiting liquids or medication, worsening shortness of breath, worsening chest pain, other concerning symptoms. You should stay at home and quarantine until the results of your PCR COVID-19 test are returned in 24 to 48 hours and are negative. 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 Documented by User: Serge Valenzuela DO 07/16/21 01:13 HPI - COVID General: Chief Complaint: COVID symptoms Stated Complaint: Chest pain, Fever, sore throat, Headach Time Seen by Provider: 07/15/21 20:46 COVID Results: SARS-CoV-2 Antigen (Rapid) Negative (Negative) 07/15/21 21:34 07/15/21 PFSH ED PFSH: Medical History Chronic migraine without aura, intractable, with status migrainosus Family History Other CAD (coronary artery disease) Cancer Diabetes Hypertension Social History Smoking and tobacco status: former smoker History of recent travel: No Course Vital Signs: Vital signs: Vital Signs Temperature 101.7 F H 07/15/21 20:35 Pulse Rate 125 H 07/15/21 20:35 Respiratory Rate 16 07/15/21 20:35 Blood Pressure 100/57 07/16/21 01:00 Pulse Oximetry 95 07/16/21 01:00 MDM - COVID MDM Narrative: Medical decision making narrative: 45-year-old female checked out to me by the previous physician at shift change. This lady has had headache, cough, chest discomfort and shortness of breath. COVID-19 type symptoms. Her rapid Covid antigen was negative in the ER. Strep and influenza are also negative. Her white blood cell count is 11. Her bicarbonate level is 18. Her creatinine is 1.2. She has had some fluid in the ER. She is feeling a bit better. CTA of the chest is negative for PE or significant infiltrate. She will be allowed home. We will PCR test her for COVID-19 as well. Lab Data: Labs: Lab Results 07/15/21 07/15/21 07/15/21 21:06 21:34 21:34 WBC 10.9 10^3/uL H 10 ^3/uL (4.0-10.0) RBC 5.21 10^6/uL 10^6 /uL (4.1-5.3) Hgb 14.7 g/dL g/dL (11.5-15.3) Hct 46.2 % % (37.0-47.0) MCV 88.7 fl fl (81-99) MCH 28.2 pg pg (28.0-34.0) MCHC 31.8 g/dL g/dL (30.0-36.0) RDW 13.9 % % (12.1-15.1) Plt Count 248 10^3/cmm 10^3 /cmm (130-400) MPV 12.4 fL H fL (7.4-10.4) Neut % (Auto) 73.3 % % Lymph % (Auto) 18.0 % % [place] % (Auto) 7.5 % % Eos % (Auto) 0.3 % % Baso % (Auto) 0.4 % % Neut # (Auto) 7.97 10^3/uL H 10 ^3/uL (1.8-7.7) Lymph # (Auto) 2.0 10^3/uL 10^3/ uL (0.8-4.8) [place] # (Auto) 0.8 10^3/uL 10^3/ uL (0.2-0.9) Eos # (Auto) 0.0 10^3/uL 10^3/ uL (0.0-0.8) Baso # (Auto) 0.0 10^3/uL 10^3/ uL (0.0-0.1) Nucleated RBC % (a uto) 0 % % Nucleated RBCs # 0.0 /100WBC /100W BC D-Dimer Specimen Type Arterial Sample Site Radial, right ABG pH 7.45 (7.35-7.45) ABG pCO2 30.9 mmHg L mmHg (35-45) ABG pO2 66.4 mmHg L mmHg (80.0-100.0) ABG HCO3 21.6 mmol/L L mmo l/L (22-26) ABG Base Excess -1.4 mmol/L mmol/ L (-2.0-2.0) Isaias Test Pos Hematocrit 42.3 % % (37-47) O2 Delivery Device Room air Director Of Tax Services ID [email or web address] Sodium 135 mmol/L L mmol /L (136-145) Potassium 4.0 mmol/L mmol/L (3.5-5.1) Chloride 100 mmol/L mmol/L (98-107) Carbon Dioxide 18 mmol/L L mmol/ L (22-29) Anion Gap 21.0 H (5-19) BUN 13 mg/dL mg/dL (6-20) Creatinine 1.2 mg/dL H mg/dL (0.5-0.9) GFR Calculation 49.0 mL/min L mL/ min (90-130) Glucose 90 mg/dL mg/dL (65-115) Calculated Osmolal ity 280 mOsm/kg L mOs m/kg (285-295) Lactate Calcium 8.9 mg/dL mg/dL (8.5-10.5) Magnesium 1.7 mg/dL mg/dL (1.7-2.3) Total Bilirubin 0.2 mg/dL mg/dL (0.15-1.2) AST 11 U/L U/L (0-32) ALT 10 U/L U/L (0-33) Alkaline Phosphata se 105 IU/L IU/L (35-105) Troponin T Baselin e Troponin T 120 Min [place] Troponin T C-Reactive Protein 50.8 mg/L H mg/L (0.0-4.9) Total Protein 7.2 g/dL g/dL (6.6-8.7) Albumin 4.6 g/dL g/dL (3.5-5.2) Globulin 2.6 g/dL g/dL (1.3-4.6) Procalcitonin 0.16 ng/mL ng/mL (0-0.5) TSH 0.47 uIU/mL uIU/m L (0.27-4.20) Influenza Type A A g Influenza Type B A g SARS-CoV-2 Ag (Rap id) Group A Strep Rapi d 07/15/21 07/15/21 07/15/21 21:34 21:34 21:34 WBC RBC Hgb Hct MCV MCH MCHC RDW Plt Count MPV Neut % (Auto) Lymph % (Auto) [place] % (Auto) Eos % (Auto) Baso % (Auto) Neut # (Auto) Lymph # (Auto) [place] # (Auto) Eos # (Auto) Baso # (Auto) Nucleated RBC % (a uto) Nucleated RBCs # D-Dimer 0.61 ug/mIFEU H u g/mIFEU (0-0.59) Specimen Type Sample Site ABG pH ABG pCO2 ABG pO2 ABG HCO3 ABG Base Excess Isaias Test Hematocrit O2 Delivery Device Director Of Tax Services ID Sodium Potassium Chloride Carbon Dioxide Anion Gap BUN Creatinine GFR Calculation Glucose Calculated Osmolal ity Lactate 1.0 mmol/L mmol/L (0.5-2.2) Calcium Magnesium Total Bilirubin AST ALT Alkaline Phosphata se Troponin T Baselin e 6 ng/L ng/L (0-10) Troponin T 120 Min [place] Troponin T C-Reactive Protein Total Protein Albumin Globulin Procalcitonin TSH Influenza Type A A g Influenza Type B A g SARS-CoV-2 Ag (Rap id) Group A Strep Rapi d 07/15/21 07/15/21 07/15/21 21:34 21:34 21:34 WBC RBC Hgb Hct MCV MCH MCHC RDW Plt Count MPV Neut % (Auto) Lymph % (Auto) [place] % (Auto) Eos % (Auto) Baso % (Auto) Neut # (Auto) Lymph # (Auto) [place] # (Auto) Eos # (Auto) Baso # (Auto) Nucleated RBC % (a uto) Nucleated RBCs # D-Dimer Specimen Type Sample Site ABG pH ABG pCO2 ABG pO2 ABG HCO3 ABG Base Excess Isaias Test Hematocrit O2 Delivery Device Director Of Tax Services ID Sodium Potassium Chloride Carbon Dioxide Anion Gap BUN Creatinine GFR Calculation Glucose Calculated Osmolal ity Lactate Calcium Magnesium Total Bilirubin AST ALT Alkaline Phosphata se Troponin T Baselin e Troponin T 120 Min [place] Troponin T C-Reactive Protein Total Protein Albumin Globulin Procalcitonin TSH Influenza Type A A g Negative (Negative) Influenza Type B A g Negative (Negative) SARS-CoV-2 Ag (Rap id) Negative (Negative) Group A Strep Rapi d Negative (Negative) 07/15/21 22:59 WBC RBC Hgb Hct MCV MCH MCHC RDW Plt Count MPV Neut % (Auto) Lymph % (Auto) [place] % (Auto) Eos % (Auto) Baso % (Auto) Neut # (Auto) Lymph # (Auto) [place] # (Auto) Eos # (Auto) Baso # (Auto) Nucleated RBC % (a uto) Nucleated RBCs # D-Dimer Specimen Type Sample Site ABG pH ABG pCO2 ABG pO2 ABG HCO3 ABG Base Excess Isaias Test Hematocrit O2 Delivery Device Director Of Tax Services ID Sodium Potassium Chloride Carbon Dioxide Anion Gap BUN Creatinine GFR Calculation Glucose Calculated Osmolal ity Lactate Calcium Magnesium Total Bilirubin AST ALT Alkaline Phosphata se Troponin T Baselin e Troponin T 120 [address] [place] 7.26 ng/L ng/L (0-10) Delta Troponin T 1.26 ABS# ABS# (0-10) C-Reactive Protein Total Protein Albumin Globulin Procalcitonin TSH Influenza Type A A g Influenza Type B A g SARS-CoV-2 Ag (Rap id) Group A Strep Rapi d COVID Results: SARS-CoV-2 Antigen (Rapid) Negative (Negative) 07/15/21 21:34 07/15/21 Discharge Plan Discharge Patient Disposition: Home Clinical Impression: Acute febrile illness, Viral infection Condition: Stable Prescriptions: No Action bupropion HCl 300 mg tablet extended release 24 hr 300 mg PO QAM RF: 0 fluoxetine 20 mg capsule 20 mg PO DAILY RF: 0 Aimovig Autoinjector 140 mg/mL auto-injector 140 mg SUBCUT Q30D Qty: 1 RF: 5 sumatriptan succinate [Imitrex] 100 mg Tablet 100 mg PO Q2H PRN (Reason: Headache) RF: 0 promethazine 25 mg Tablet 25 mg PO DAILY PRN (Reason: Nausea) RF: 0 montelukast 10 mg Tablet 10 mg PO DAILY RF: 0 Discharge Orders: Discharge ED (Routine); Ordered 07/16/21 Ordered By: Serge Valenzuela Referrals: Mi Li FNP [Primary Care Provider] - 1-3 days Discharge Diet: Advance as tolerated Discharge Activity: Limit activity as instructed Patient Instructions: Fever in Adults (ED), Viral Syndrome (ED) Activity Restrictions/Additional Instructions: Monitor your temperature closely and treat accordingly. Return for inability to control temperature, vomiting liquids or medication, worsening shortness of breath, worsening chest pain, other concerning symptoms. You should stay at home and quarantine until the results of your PCR COVID-19 test are returned in 24 to 48 hours and are negative. 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
--- NOTE | 2021-07-15 21:06 | XR_ITS ---
WS: [id number] PORTABLE CHEST HISTORY: sob COMPARISON: 07/07/2021 Lungs are clear and well expanded. No pleural effusion or pneumothorax. Cardiac size: Normal. Mediastinum/Aorta: Normal mediastinum. No osseous abnormality seen. XR/XR chest 1V portable [id number] IMPRESSION: Unremarkable portable chest.
--- NOTE | 2021-07-15 21:08 | ECG_ITS ---
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 Measurements Intervals [place] Rate: 137 P: 49 MI: 136 QRS: 154 QRSD: 98 T: 31 QT: 308 QTc: 466 Interpretive Statements SINUS TACHYCARDIA PATTERN CONSISTENT WITH PULMONARY DISEASE INCOMPLETE RIGHT BUNDLE BRANCH BLOCK [90+ ms QRS DURATION, TERMINAL R IN V1/V2, 40+ ms S IN I/aVL/V4/V5/V6] RIGHT VENTRICULAR HYPERTROPHY [SOME/ALL OF: PROMINENT R IN V1, LATE TRANSITION, RAD, CONNOR, SSS] Compared to ECG 07/07/2021 13:09:37 Right ventricular hypertrophy now present Atrial abnormality now present Sinus rhythm no longer present Electronically Signed On 07-16-2021 16:59:19 TREASURY REPRESENTATIVE by Juan Curry M.D. [email or web address]
[2021-07-15] MEDS: sodium chloride 0.9% 500 ML IV (21:29)
[2021-07-15] MEDS: acetaminophen 1,000 MG/100 ML PIGGYBACK 400 MG IV (21:30)
[2021-07-15 21:42] LABS: Basophils % 0.4 %; Eosinophils % 0.3 %; Hematocrit 46.2 % (37.0-47.0); Hemoglobin 14.7 g/dL (11.5-15.3); Mean Corpuscular HGB Conc 31.8 g/dL (30.0-36.0); Mean Corpuscular Hemoglobin 28.2 pg (28.0-34.0); Mean Corpuscular Volume 88.7 fl (81-99); Mean Platelet Volume 12.4 fL (7.4-10.4); Monocytes # 0.8 10^3/uL (0.2-0.9); Monocytes % 7.5 %; Neutrophils # 7.97 10^3/uL (1.8-7.7); Neutrophils % 73.3 %; Nucleated Red Blood Cells % 0 %; Platelet Count 248 10^3/cmm (130-400); Red Blood Count 5.21 10^6/uL (4.1-5.3); Red Cell Distribution Width 13.9 % (12.1-15.1); White Blood Count 10.9 10^3/uL (4.0-10.0)
[2021-07-15 21:57] LABS: D Dimer 0.61 ug/mIFEU (0-0.59)
[2021-07-15 22:03] LABS: Troponin(5th) Baseline 6 ng/L (0-10)
--- NOTE | 2021-07-15 22:05 | CTR_ITS ---
PROCEDURE INFORMATION: Exam: CTA Chest With Contrast Exam date and time: 07/15/2021 10:05 PM Age: 45 years old Clinical indication: Sternal or substernal pain; Patient HX: C/O cp and cough w elev d-dimer; Additional info: D dimer elevated, chest pain, tachycardia, ? pneumonia TECHNIQUE: Imaging protocol: Computed tomographic angiography of the chest with contrast. 3D rendering (Not supervised by radiologist): MIP and/or 3D reconstructed images were created by the technologist. Radiation optimization: All CT scans at this facility use at least one of these dose optimization techniques: automated exposure control; mA and/or kV adjustment per patient size (includes targeted exams where dose is matched to clinical indication); or iterative reconstruction. Contrast material: VISI 320; Contrast volume: 67 ml; Contrast route: INTRAVENOUS (IV); COMPARISON: CT chest con [id number] 07/07/2021 2:09 PM RADIATION DOSE METRICS: Total DLP (mGy-cm): 570.44 FINDINGS: Pulmonary arteries: Normal. No pulmonary emboli. Aorta: Unremarkable. No aortic aneurysm. No aortic dissection. Lungs: Unremarkable. No consolidation. No masses. Pleural spaces: Unremarkable. No pneumothorax. No pleural effusion. Heart: Unremarkable. No cardiomegaly. No pericardial effusion. Lymph nodes: Unremarkable. No enlarged lymph nodes. Kidneys and ureters: Left nephrectomy surgical change. Bones/joints: Unremarkable. No acute fracture. Soft tissues: Unremarkable. CT/CT angio chest PE protcl [id number] IMPRESSION: Negative CT angiogram of the chest. No acute abnormality identified. Radiation Dose CTDIVOL = (mGy): DLP = 570.44 (mGy-cm)
[2021-07-15 22:10] LABS: Procalcitonin 0.16 ng/mL (0-0.5); Thyroid Stimulating Hormone 0.47 uIU/mL (0.27-4.20)
[2021-07-15 22:19] LABS: Influenza A by IFA Negative (Negative); Influenza B by IFA Negative (Negative); SARS Covid-2 Antigen Negative (Negative)
[2021-07-15 22:21] LABS: Alanine Aminotransferase 10 U/L (0-33); Albumin Level 4.6 g/dL (3.5-5.2); Alkaline Phosphatase 105 IU/L (35-105); Aspartate Amino Transferase 11 U/L (0-32); Blood Urea Nitrogen 13 mg/dL (6-20); C Reactive Protein 50.8 mg/L (0.0-4.9); Calcium 8.9 mg/dL (8.5-10.5); Carbon Dioxide 18 mmol/L (22-29); Chloride 100 mmol/L (98-107); Globulin 2.6 g/dL (1.3-4.6); Glucose 90 mg/dL (65-115); Magnesium 1.7 mg/dL (1.7-2.3); Osmolality Calculated 280 mOsm/kg (285-295); Sodium 135 mmol/L (136-145); Total Bilirubin 0.2 mg/dL (0.15-1.2); Total Protein 7.2 g/dL (6.6-8.7)
[2021-07-15 22:23] LABS: ABG PCO2 30.9 mmHg (35-45); ABG PH Result 7.45 (7.35-7.45); Arterial Blood Gas Hematocrit 42.3 % (37-47); Base Excess ABG -1.4 mmol/L (-2.0-2.0); Blood Gas Allen Test Pos; Blood Gas Sample Site Radial, right; Blood Gas Sample Type Arterial; HCO3 ABG 21.6 mmol/L (22-26); Oxygen Device ROOM AIR; PO2 ABG 66.4 mmHg (80.0-100.0)
[2021-07-15 23:24] LABS: Troponin 5 2HR 7.26 ng/L (0-10); Troponin 5 2HR Delta 1.26 ABS# (0-10)
[2021-07-15] MEDS: sodium chloride 0.9% 1,000 ML 999 ML IV (23:30)
[2021-07-15] MEDS: iodixanol 320 mg/mL 100mL Btl IV (23:50)
[2021-07-16] VITALS (13 sets, daily range): BP systolic 100–112; BP diastolic 57–62; O2SAT 93–96
[2021-07-16] MEDS: metoclopramide 5 mg/mL SDV 2 mL 10 MG IVP (00:02)
[2021-07-16] MEDS: fentaNYL 50 mcg/mL INJ 2mL IVP (00:02)
[2021-07-16 00:30] LABS: Rapid Strep A Test Negative (Negative)
== END 2021-07-16 01:28 | disposition home or self-care (01) ==
PROVIDERS: Emergency Medicine; Emergency Provider Emergency Medicine; PCP Nurse Practitioner
DX: B34.9 Viral infection, unspecified (principal); Z87.891 Personal history of nicotine dependence; Z20.822 Contact with and (suspected) exposure to COVID-19
CPT/HCPCS: 36600; 71045; 71275; 80053; 82803; 83605; 83735; 84145; 84443; 84484; 85025; 85378; 86140; 87081; 87426; 87804; 87880; 93005; 96361; 96374; 96375; 99284; J2765; J3010; J7030; J7040; Q9967

== ENCOUNTER → 2021-09-12 10:54 | Outpatient (BNVA) | payer OTHER, SELFPAY | PROVIDERS: Visit Provider Specialist | DX: G43.711 Chronic migraine without aura, intractable, with status migrainosus (principal); R91.1 Solitary pulmonary nodule; M51.9 Unspecified thoracic, thoracolumbar and lumbosacral intervertebral disc disorder; Z87.891 Personal history of nicotine dependence | CPT/HCPCS: 99214 ==

== ENCOUNTER → 2021-10-15 11:08 | Outpatient (BNVA) | payer OTHER, SELFPAY | PROVIDERS: Visit Provider Specialist | DX: G43.711 Chronic migraine without aura, intractable, with status migrainosus (principal); Z87.891 Personal history of nicotine dependence | CPT/HCPCS: 64615; J0585 ==

== ENCOUNTER → 2022-01-24 10:48 | Outpatient (BNVA) | payer OTHER, SELFPAY | PROVIDERS: PCP Nurse Practitioner; Visit Provider Specialist | DX: G43.711 Chronic migraine without aura, intractable, with status migrainosus (principal) | CPT/HCPCS: 64615; J0585 ==

== ENCOUNTER 2022-03-11 10:36 | Outpatient (CLI) | payer OTHER, SELFPAY ==
--- NOTE | 2022-03-11 11:00 | CT_ITS ---
WS: [id number] CT CHEST WITHOUT INTRAVENOUS CONTRAST HISTORY: R91.1 - Solitary pulmonary nodule TECHNIQUE: Contiguous 5 mm axial imaging performed on the thorax. Coronal and sagittal reformats are submitted. All CT scans at [facility] use at least one of these dose optimization techniques: automated exposure control; mA and/or kV adjustment per patient size (includes targeted exams where dose is matched to clinical indication); or iterative reconstruction. CONTRAST: None DLP: 687.18 mGy.cm COMPARISON: 07/07/2021, 07/15/2021 Lungs and central airway: Lungs are well aerated. There are several very small noncalcified subcentim eter pulmonary nodules. The largest measures 3 mm in the RIGHT lower lobe at 3 mm. 3 mm nodule in the posterior RIGHT upper lobe. Intrapulmonary nodule which is probably a lymph node along the minor fis sure. These nodules have remained stable. No new or enlarging mass or nodule. Pleura: Normal. No pleural effusion. Heart and pericardium: Normal size heart with no pericardial effusion. Mediastinum and stevie: No mediastinum or hilar adenopathy. Vessels: Normal size aortic and pulmonary artery. Chest wall and lower neck: No soft tissue masses. Upper abdomen: Prior cholecystectomy. No adrenal mass. Small hiatal hernia. Osseous structures: No destructive process. CT/CT chest wo con [id number] IMPRESSION: No change in the 3 mm pulmonary nodules in the RIGHT upper and RIGHT lower lobe s. Stable since 07/07/2021. If there is no increased risk for malignancy no add itional follow-up is necessary. If patient has risk factors for malignancy CT f ollow-up in 12 months is recommended.
== END 2022-03-11 10:37 | disposition home or self-care (01) ==
PROVIDERS: PCP Nurse Practitioner; Visit Provider Specialist
DX: R91.1 Solitary pulmonary nodule (principal)
CPT/HCPCS: 71250

== ENCOUNTER 2022-03-26 10:52 | Outpatient (CLI) | payer OTHER, SELFPAY ==
--- NOTE | 2022-03-26 | ECG_ITS ---
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 Interpretive Statements NAME OF STUDY: TREADMILL STRESS ECHOCARDIOGRAM INDICATION: Chest Pain PROCEDURE: At the baseline, the patient's blood pressure was 136/58 mm Hg with a heart rate of 81 bpm and oxygen saturation 92%. The baseline electrocardiogram showed normal sinus rhythm with right axis deviation, incomplete right bundle branch block. The patient exercised for 6 minutes 19 seconds on a standard Shay protocol. Patient attained a maximum heart rate of 174 beats per minute(98% of the maximum predicted heart rate) with a blood pressure at the peak exercise of 186/77 mm Hg and oxygen saturation 97%. The EKG at the peak exercise revealed sinus tachycardia with no significant ST-T wave changes. Patient did have chest pain with the exercise during stage II that resolved spontaneously during recovery..] During the recovery phase, there were no new changes. Blood pressure at the end of the recovery phase was 111/69 mm Hg with a heart rate of 99 beats per minute and oxygen saturation 94%. Echocardiographic pictures were taken at the baseline, immediately following the peak exercise and during the recovery phase. CONCLUSION: 1. Normal EKG response to treadmill exercise. 2. No exercise-induced chest pain or cardiac arrhythmia 3. Good Exercise tolerance, attained a maximum of 10.2 METs 4. Please see separate report for the echocardiographic response to exercise. Electronically Signed On 04-02-2022 12:33:43 CDT by Vi Musa M.D. [email or web address]
[2022-03-26 11:44] VITALS: BMI 31.5
--- NOTE | 2022-03-26 11:48 | USCV_ITS ---
Stress Echo Roxanna Monterroso Age: 46 Gender: F : 1975 Exam Date: 03/26/2022 12:04 Ordering Phys: Vi Musa MD ([email or web address]) Technologist: Alia Sandoval Exam Location: [facility] [place] Indication: CHEST PAIN Rhythm: Sinus Patient History: Chest pain Cardiac Medications: Beta claudia Medications in past 24 hours: NONE Contrast: Stress Results Protocol: Shay Total dose(mL): Exercise Duration (min:sec): 06:19 METS: 10.2 Resting HR: 81 Resting BP: 136 / 58 Peak HR: 174 Peak BP: 186 / 96 Max Predicted HR: 176 99 % Max Predicted HR Target HR: 150 Double Product: [id number] Stress Summary: The patient's target heart rate was achieved BP Response: Normal Reason for Termination: Test terminated after reaching target heart rate (85% max predicted), Maximal effort/unable to continue. Chest pain during exertion Cardiac Symptoms: Chest pain ECG Analysis Resting ECG: Stress ECG: Arrhythmia: MEASUREMENTS (Male/Female) Normal Values 2D ECHO LV Ejection Fraction MOD 2C 70.5 % LV Ejection Fraction 2C AL 69.9 % DOPPLER AV Peak Velocity 115.0 cm/s LVOT Peak Velocity 106.0 cm/s FINDINGS PROCEDURE: At the baseline, the patient's blood pressure was 136/58 mmHg with a heart rate of 81 bpm. The patient exercised for 6 minutes 19 seconds on a standard Shay protocol. Patient attained a maximum heart rate of 174 beats per minute(99% of the maximum predicted heart rate) with a blood pressure at the peak exercise of 186/96 mm Hg. During the recovery phase, there were no new changes. Echocardiographic pictures were taken at the baseline, immediately following the peak exercise and during the recovery phase. Baseline echocardiogram: Normal left ventricular size and systolic function with ejection fraction estimated at 70%. No regional wall motion abnormalities. Normal right ventricle size and systolic function. Normal left and right atrial size. No pericardial effusion. No intracardiac masses. No aortic valve stenosis. Normal-sized aortic root and ascending aorta. Peak exercise echocardiogram: Normal augmentation of left ventricular systolic function with exercise. No new regional wall motion abnormalities. Recovery echocardiogram: Left ventricular systolic function normalizes. No regional wall motion abnormalities. CONCLUSIONS 1. This is a treadmill stress echocardiogram. 2. Fair exercise tolerance, attained a maximum of 10.2 METs. Double product of 32,365. 3. Normal blood pressure and heart rate response to exercise. 4. Normal echocardiographic response to exercise. 5. No EKG changes with exercise. Please see separate report for the EKG portion of the study. Vi Musa MD (Electronically Signed) Final Date: 02 April 2022 12:42 S
[2022-03-26 13:03] VITALS: BP 111/69; PULSE 99
== END 2022-03-26 10:53 | disposition home or self-care (01) ==
LOC: CDL 10:52
PROVIDERS: PCP Nurse Practitioner; Visit Provider Internal Medicine Cardiovascular Disease
DX: R07.9 Chest pain, unspecified (principal)
CPT/HCPCS: 93017; 93350

== ENCOUNTER → 2022-04-02 10:47 | Outpatient (BNVA) | payer OTHER, SELFPAY | PROVIDERS: PCP Nurse Practitioner; Visit Provider Internal Medicine Cardiovascular Disease | DX: R07.9 Chest pain, unspecified (principal); R00.2 Palpitations; Z98.890 Other specified postprocedural states; Z86.79 Personal history of other diseases of the circulatory system; Z82.49 Family history of ischemic heart disease and other diseases of the circulatory system | CPT/HCPCS: 99214 ==

== ENCOUNTER → 2022-04-18 10:43 | Outpatient (BNVA) | payer OTHER, SELFPAY | PROVIDERS: PCP Nurse Practitioner; Visit Provider Specialist | DX: G43.711 Chronic migraine without aura, intractable, with status migrainosus (principal) | CPT/HCPCS: 64615; J0585 ==

== ENCOUNTER → 2022-07-11 11:36 | Outpatient (BNVA) | payer OTHER, SELFPAY | PROVIDERS: PCP Nurse Practitioner; Visit Provider Specialist | DX: G43.711 Chronic migraine without aura, intractable, with status migrainosus (principal) | CPT/HCPCS: 64615; 95911; J0585 ==

== ENCOUNTER → 2022-10-16 14:29 | Outpatient (BNVA) | payer OTHER, SELFPAY | PROVIDERS: PCP Nurse Practitioner; Visit Provider Nurse Practitioner Family | DX: R00.2 Palpitations (principal); Z86.79 Personal history of other diseases of the circulatory system | CPT/HCPCS: 99213 ==

== ENCOUNTER → 2022-10-24 08:07 | Outpatient (BNVA) | payer OTHER, SELFPAY | PROVIDERS: PCP Nurse Practitioner; Visit Provider Specialist | DX: G43.711 Chronic migraine without aura, intractable, with status migrainosus (principal); M54.81 Occipital neuralgia | CPT/HCPCS: 64615; J0585 ==

== ENCOUNTER → 2022-12-05 09:57 | Outpatient (BNVA) | payer OTHER, SELFPAY | PROVIDERS: PCP Nurse Practitioner; Visit Provider Specialist | DX: M54.81 Occipital neuralgia (principal); G43.711 Chronic migraine without aura, intractable, with status migrainosus | CPT/HCPCS: 64405; 64450; J1030; J3490 ==

== ENCOUNTER → 2023-01-02 09:44 | Outpatient (BNVA) | payer OTHER, SELFPAY | PROVIDERS: PCP Nurse Practitioner; Visit Provider Specialist | DX: M54.81 Occipital neuralgia (principal) | CPT/HCPCS: 64405; 64450; J1030; J3490 ==

== ENCOUNTER → 2023-01-28 17:21 | Outpatient (BNVA) | payer BC, SELFPAY | PROVIDERS: PCP Nurse Practitioner; Visit Provider Nurse Practitioner Family | DX: S99.911A Unspecified injury of right ankle, initial encounter (principal); X50.1XXA Overexertion from prolonged static or awkward postures, initial encounter | CPT/HCPCS: 73610 ==

== ENCOUNTER → 2023-04-25 11:51 | Outpatient (BNVA) | payer OTHER, SELFPAY | PROVIDERS: PCP Nurse Practitioner; Visit Provider Internal Medicine Cardiovascular Disease | DX: R07.9 Chest pain, unspecified (principal); R00.2 Palpitations; I47.1 Supraventricular tachycardia; Z98.890 Other specified postprocedural states; Z82.49 Family history of ischemic heart disease and other diseases of the circulatory system | CPT/HCPCS: 99214 ==

== ENCOUNTER 2024-01-28 13:19 | Outpatient (CLI) | payer OTHER, SELFPAY ==
--- NOTE | 2024-01-28 13:00 | MM_ITS ---
WS: [id number] BILATERAL 3D TOMOSYNTHESIS DIGITAL SCREENING MAMMOGRAPHY WITH CAD CLINICAL INFORMATION: SCREENING HISTORY: Screening mammogram. No current complaints. COMPARISON: 2020 TECHNIQUE: Bilateral CC and MLO views. FINDINGS: The breasts are composed of heterogeneous fibroglandular density tissue, which can limit the detectio n of small underlying mass lesions. No suspicious mass, asymmetry, calcifications, or architectural d istortion. No evidence of malignancy. Nodular breast parenchyma posterior depth RIGHT breast similar to the prior examinations dating back to 2013. MM/[place] [id number] IMPRESSION: BI-RADS: 2-Benign FOLLOW UP: 1 Year Follow-up Recommend return to annual screening mammography.
== END 2024-01-28 13:20 | disposition home or self-care (01) ==
LOC: MOBLMAM 13:27
PROVIDERS: PCP Nurse Practitioner; Visit Provider Nurse Practitioner
DX: Z12.31 Encounter for screening mammogram for malignant neoplasm of breast (principal); R92.323 Mammographic fibroglandular density, bilateral breasts; R92.333 Mammographic heterogeneous density, bilateral breasts; N63.10 Unspecified lump in the right breast, unspecified quadrant
CPT/HCPCS: 77063; 77067

== ENCOUNTER → 2024-02-02 10:00 | Outpatient (BNVA) | payer OTHER, SELFPAY | PROVIDERS: PCP Nurse Practitioner; Visit Provider Nurse Practitioner Family | DX: Z86.79 Personal history of other diseases of the circulatory system (principal); R60.9 Edema, unspecified | CPT/HCPCS: 99213 ==

== ENCOUNTER → 2024-05-28 10:45 | Outpatient (BNVA) | payer OTHER, SELFPAY | PROVIDERS: PCP Nurse Practitioner; Visit Provider Internal Medicine Cardiovascular Disease | DX: I47.10 Supraventricular tachycardia, unspecified (principal); R60.0 Localized edema; Z87.891 Personal history of nicotine dependence | CPT/HCPCS: 99213 ==

== ENCOUNTER 2024-06-28 10:33 | Emergency (ER) | payer OTHER, SELFPAY ==
--- NOTE | 2024-06-28 10:34 | XR_ITS ---
WS: [id number] Exam: XR chest 1V portable [id number] Date/Time of Exam: 06/28/2024 10:37 AM Reason For Exam: sob Comparison 07/15/2021 the lungs are clear and fully inflated. Normal cardiomediastinal silhouette and bony elements. No pleural effusion. XR/XR chest 1V portable [id number] IMPRESSION: 1. Negative chest.
[2024-06-28 10:46] VITALS: BP 131/80; PULSE 83; RESP 18; TEMP 36.6; O2SAT 99; BMI 31.9
[2024-06-28 11:35] LABS: Covid PCR NEGATIVE (Negative); Influenza A NEGATIVE (Negative); Influenza B NEGATIVE (Negative); Respiratory Syncytial Virus Ce NEGATIVE (Negative)
[2024-06-28 12:02] LABS: Basophils # 0.1 10^3/uL (0.0-0.1); Basophils % 0.7 %; Eosinophils # 0.6 10^3/uL (0.0-0.8); Eosinophils % 7.1 %; Hematocrit 49.6 % (36-47); Lymphocytes # 3.9 10^3/uL (0.8-4.8); Lymphocytes % 42.9 %; Mean Corpuscular HGB Conc 33.1 g/dL (30-55); Mean Corpuscular Hemoglobin 28.4 pg (27-33); Mean Platelet Volume 11.6 fL (7.4-10.4); Monocytes # 0.6 10^3/uL (0.2-0.9); Monocytes % 6.6 %; Neutrophils % 42.3 %; Nucleated Red Blood Cells % 0 %; Platelet Count 257 10^3/cmm (157-399); Red Blood Count 5.77 10^6/uL (3.85-5.65); Red Cell Distribution Width 14.6 % (12.1-15.1); White Blood Count 8.98 10^3/uL (3.29-11.43)
[2024-06-28 12:26] LABS: Troponin(5th) Baseline 7 ng/L (0-10)
--- NOTE | 2024-06-28 12:32 | ECG_ITS ---
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 Measurements Intervals [place] Rate: 72 P: 0 NM: 160 QRS: 107 QRSD: 113 T: 28 QT: 389 QTc: 428 Interpretive Statements SINUS RHYTHM RIGHT AXIS DEVIATION [QRS AXIS > 100] INCOMPLETE RIGHT BUNDLE BRANCH BLOCK [90+ ms QRS DURATION, TERMINAL R IN V1/V2, 40+ ms S IN I/aVL/V4/V5/V6] POSSIBLE ANTERIOR MYOCARDIAL INFARCTION , OF INDETERMINATE AGE [30 ms Q WAVE IN V3/V4, OR R < 0.2 mV IN V4] Compared to ECG 07/15/2021 20:39:08 Right-axis deviation now present Myocardial infarct finding now present Sinus tachycardia no longer present Right ventricular hypertrophy no longer present Atrial abnormality no longer present Electronically Signed On 06-28-2024 19:27:01 [employer] by Lavinia Edge M.D. [id number]
[2024-06-28 12:38] LABS: Alanine Aminotransferase 27 U/L (0-33); Albumin Level 4.8 g/dL (3.5-5.2); Alkaline Phosphatase 119 U/L (35-105); Anion Gap 18.3 (5-19); Aspartate Amino Transferase 19 U/L (0-32); Blood Urea Nitrogen 12 mg/dL (6-20); Calcium 10.2 mg/dL (8.5-10.5); Carbon Dioxide 23 mmol/L (22-29); Chloride 100 mmol/L (98-107); Globulin 3.3 g/dL (1.3-4.6); Glomerular Filtration Rate 53.5 mL/min (90-130); Glucose 95 mg/dL (65-115); NT Pro B Type Natriuretic Pept < 36 pg/mL (0-125); Osmolality Calculated 284 mOsm/kg (285-295); Potassium 4.3 mmol/L (3.5-5.1); Sodium 137 mmol/L (136-145); Total Bilirubin 0.2 mg/dL (0.15-1.2); Total Protein 8.1 g/dL (6.6-8.7)
[2024-06-28 12:42] LABS: Creatinine Clr Calc Pharmacy 67.1555
--- NOTE | 2024-06-28 12:54 | W.ED.URI ---
HPI - URI/Sore Throat General: Chief Complaint: Upper Respiratory Infection Stated Complaint: cough w/ chest pain, SOB Time Seen by Provider: 06/28/24 12:31 History of Present Illness: 48-year-old female presents emergency room with nonproductive cough for the last several days sore throat shortness of breath exertion no fever she has had some nausea with this she has not had any diarrhea. Chest pain is only when she coughs. No abdominal pain no dysuria urgency or frequency Associated symptoms: Deny abdominal pain, chills, chest pain or fever(s) Related Data Home Medications Medication Instructions Recorded Confirmed sumatriptan succinate 100 mg 100 mg PO Q2H PRN Headache 11/12/19 05/28/24 tablet (Imitrex) bupropion HCl 300 mg 24 hr tablet, 300 mg PO QAM 01/31/21 05/28/24 extended release pantoprazole 40 mg tablet,delayed 40 mg PO DAILY 10/02/21 05/28/24 release hydralazine 10 mg tablet 10 mg PO BID 04/02/22 05/28/24 multivitamin 1 tab PO DAILY 04/02/22 05/28/24 Previous Rx's Medication Instructions Recorded zolmitriptan 5 mg tablet See Rx Instructions .Route 12/04/23 .COMPLEX #9 tabs furosemide 20 mg tablet 20 mg PO DAILY PRN edema #30 tabs 02/02/24 metoprolol succinate 25 mg 25 mg PO BID #180 tabs 04/30/24 tablet,extended release 24 hr albuterol sulfate 90 mcg/actuation 2 inh inhalation Q4H PRN shortness 06/28/24 aerosol inhaler of breath or wheezing #18 grams prednisone 20 mg tablet 20 mg PO TID #15 tabs 06/28/24 promethazine 25 mg tablet 25 mg PO Q6H PRN nausea and 06/28/24 vomiting #20 tabs Allergies Allergy/AdvReac Type Severity Reaction Status Date / Time codeine Allergy ADR-Itching Verified 05/28/24 10:53 Review of Systems Const: Denies: fever(s) or chills Card: Denies: chest pain Resp: Reports: non-productive cough, wheezing and chest congestion; Denies: dyspnea GI: Denies: abdominal pain : Denies: dysuria, urinary frequency or urinary urgency Musc: Denies: neck pain or back pain Skin/Breast: Denies: rash PFSH ED PFSH: Medical History Family history of coronary artery disease H/O supraventricular tachycardia Chronic migraine without aura, intractable, with status migrainosus Surgical History S/P ablation operation for arrhythmia Family History Other CAD (coronary artery disease) Cancer Diabetes Hypertension Social History Smoking and tobacco/nicotine status: former use of tobacco/nicotine Physical Exam Const: GENERAL APPEARANCE: cooperative ORIENTATION/CONSCIOUSNESS: Yes awake, Yes oriented to person, Yes oriented to place and Yes oriented to time HENMT: COMMON NORMALS: normocephalic, atraumatic and hearing grossly normal bilaterally HEAD & SCALP: normocephalic and atraumatic Resp: COMMON NORMALS: normal respiratory effort, No retractions, No use of accessory muscles and clear to auscultation bilaterally AUSCULTATION: clear to auscultation bilaterally Cardio: COMMON NORMALS: regular rate, regular rhythm and No murmurs present (Cardio) RATE: regular rate RHYTHM: regular rhythm GI: COMMON NORMALS: Soft to palpation and No hepatosplenomegaly present AUSCULTATION: Yes normoactive bowel sounds PALPATION: Yes Soft to palpation, No Tenderness to palpation present (GI), No Guarding due to palpation present (GI) and Yes No hepatosplenomegaly present Extremity: COMMON NORMALS: normal to inspection, capillary refill normal, no clubbing, cyanosis or edema, no calf tenderness and no pedal edema Neuro: SENSORIUM/ORIENTATION: Yes oriented to person, Yes oriented to place and Yes oriented to time Skin: COMMON NORMALS: no rashes or lesions noted GENERAL SKIN EXAM: no rashes or lesions noted Course Vital Signs: Vital signs: Vital Signs Temperature 97.8 F 06/28/24 10:46 Pulse Rate 83 06/28/24 10:46 Respiratory Rate 18 06/28/24 10:46 Blood Pressure 131/80 06/28/24 10:46 Pulse Oximetry 99 06/28/24 10:46 Oxygen Delivery Me thod Room Air 06/28/24 10:46 MDM - URI/Sore Throat Medical Decision Making Exam normal laboratory studies not show any significant Malee flu COVID and RSV are negative. Discharge patient home on a prednisone taper albuterol to use as needed promethazine as needed and follow-up with her primary care doctor if improving Medical Records I reviewed the patient's medical records. Lab Data I reviewed the patient's lab results. 06/28/24 11:49 06/28/24 11:49 Radiology Impressions Chest X-Ray 06/28/24 10:34 IMPRESSION: 1. Negative chest. Laboratory Results WBC 8.98 10^3/uL (3.29-11.43) 06/28/24 11:49 RBC 5.77 10^6/uL (3.85-5.65) H 06/28/24 11:49 Hgb 16.40 g/dL (11.27-16.99) 06/28/24 11:49 Hct 49.6 % (36-47) H 06/28/24 11:49 MCV 86.0 fl (85-98) 06/28/24 11:49 MCH 28.4 pg (27-33) 06/28/24 11:49 MCHC 33.1 g/dL (30-55) 06/28/24 11:49 RDW 14.6 % (12.1-15.1) 06/28/24 11:49 Plt Count 257 10^3/cmm (157-399) 06/28/24 11:49 MPV 11.6 fL (7.4-10.4) H 06/28/24 11:49 Neut % (Auto) 42.3 % 06/28/24 11:49 Lymph % (Auto) 42.9 % 06/28/24 11:49 [place] % (Auto) 6.6 % 06/28/24 11:49 Eos % (Auto) 7.1 % 06/28/24 11:49 Baso % (Auto) 0.7 % 06/28/24 11:49 Neut # (Auto) 3.80 10^3/uL (1.8-7.7) 06/28/24 11:49 Lymph # (Auto) 3.9 10^3/uL (0.8-4.8) 06/28/24 11:49 [place] # (Auto) 0.6 10^3/uL (0.2-0.9) 06/28/24 11:49 Eos # (Auto) 0.6 10^3/uL (0.0-0.8) 06/28/24 11:49 Baso # (Auto) 0.1 10^3/uL (0.0-0.1) 06/28/24 11:49 Nucleated RBC % (auto) 0 % 06/28/24 11:49 Nucleated RBCs # 0.0 /100WBC 06/28/24 11:49 Sodium 137 mmol/L (136-145) 06/28/24 11:49 Potassium 4.3 mmol/L (3.5-5.1) 06/28/24 11:49 Chloride 100 mmol/L (98-107) 06/28/24 11:49 Carbon Dioxide 23 mmol/L (22-29) 06/28/24 11:49 Anion Gap 18.3 (5-19) 06/28/24 11:49 BUN 12 mg/dL (6-20) 06/28/24 11:49 Creatinine 1.1 mg/dL (0.5-0.9) H 06/28/24 11:49 GFR Calculation 53.5 mL/min (90-130) L 06/28/24 11:49 Glucose 95 mg/dL (65-115) 06/28/24 11:49 Calculated Osmolality 284 mOsm/kg (285-295) L 06/28/24 11:49 Calcium 10.2 mg/dL (8.5-10.5) 06/28/24 11:49 Total Bilirubin 0.2 mg/dL (0.15-1.2) 06/28/24 11:49 AST 19 U/L (0-32) 06/28/24 11:49 ALT 27 U/L (0-33) 06/28/24 11:49 Alkaline Phosphatase 119 U/L (35-105) H 06/28/24 11:49 Troponin T Baseline 7 ng/L (0-10) 06/28/24 11:49 Troponin T 120 Minute 6.00 ng/L (0-10) 06/28/24 14:07 Delta Troponin T -1.00 ABS# (0-10) L 06/28/24 14:07 NT-Pro-B Natriuret Pep < 36 pg/mL (0-125) 06/28/24 11:49 Total Protein 8.1 g/dL (6.6-8.7) 06/28/24 11:49 Albumin 4.8 g/dL (3.5-5.2) 06/28/24 11:49 Globulin 3.3 g/dL (1.3-4.6) 06/28/24 11:49 Coronavirus (PCR) Negative (Negative) 06/28/24 10:50 Influenza A (PCR) Negative (Negative) 06/28/24 10:50 Influenza Type B (PCR) Negative (Negative) 06/28/24 10:50 RSV (PCR) Negative (Negative) 06/28/24 10:50 All radiology interpretation(s) finalized by discharge Discharge Plan Discharge Patient Disposition: Home Clinical Impression: Viral URI with cough Condition: Stable Prescriptions: New prednisone 20 mg tablet 20 mg PO TID Qty: 15 0RF Rx Instructions: 1 p.o. 3 times daily x3 days, 1 p.o. twice daily x2 days, 1 p.o. daily x2 days promethazine 25 mg tablet 25 mg PO Q6H PRN (Reason: nausea and vomiting) Qty: 20 0RF albuterol sulfate 90 mcg/actuation HFA aerosol inhaler 2 inh INHALATION Q4H PRN (Reason: shortness of breath or wheezing) Qty: 18 0RF No Action bupropion HCl 300 mg tablet extended release 24 hr 300 mg PO QAM hydralazine 10 mg tablet 10 mg PO BID pantoprazole 40 mg tablet,delayed release (DR/EC) 40 mg PO DAILY multivitamin Tablet 1 tab PO DAILY methylprednisolone acetate [Depo-Medrol] 40 mg/mL suspension 40 mg Infiltration ONCE Qty: 1 0RF bupivacaine (PF) 0.25 % (2.5 mg/mL) solution 10 ml Infiltration ONCE Qty: 1 0RF furosemide 20 mg tablet 20 mg PO DAILY PRN (Reason: edema) Qty: 30 5RF zolmitriptan 5 mg tablet See Rx Instructions .ROUTE .COMPLEX Qty: 9 0RF Dose Instruction: TAKE 1 TABLET BY MOUTH EVERY 2 HOURS NEEDED FOR MIGRAINE HEADACHE, DO NOT EXCEED 2 DOSES PER 24 HOURS Rx Instructions: TAKE 1 TABLET BY MOUTH EVERY 2 HOURS NEEDED FOR MIGRAINE HEADACHE, DO NOT EXCEED 2 DOSES PER 24 HOURS metoprolol succinate 25 mg tablet extended release 24 hr 25 mg PO BID Qty: 180 3RF sumatriptan succinate [Imitrex] 100 mg Tablet 100 mg PO Q2H PRN (Reason: Headache) Discharge Orders: Discharge ED (Routine); Ordered 06/28/24 Ordered By: Don King Referrals: Mi Li, TRUCK DRIVER SALESPERSON [Primary Care Provider] - Patient Instructions: Opioid Safety, Pain Management Activity Restrictions/Additional Instructions: [facility]. It is very important that you follow up as instructed or that you return to the Emergency Department should you have concerns or if your condition changes or worsens in any way. You are seen in the emergency room with upper respiratory symptoms COVID flu and RSV were negative chest x-ray did not show any acute infiltrates will start you on a prednisone taper also use albuterol as needed. Recheck with your primary care doctor if not improving. Coding Level of Care Code ED Cigarette Carton Sealer for Shirley Madrid
[2024-06-28 15:02] VITALS: BP 110/69; PULSE 69; O2SAT 98
== END 2024-06-28 15:07 | disposition home or self-care (01) ==
PROVIDERS: Physician Assistant; Emergency Provider Family Medicine; PCP Nurse Practitioner
DX: J06.9 Acute upper respiratory infection, unspecified (principal); Z11.52 Encounter for screening for COVID-19; Z87.891 Personal history of nicotine dependence
CPT/HCPCS: 0241U; 36415; 71045; 80053; 83880; 84484; 85025; 93005; 99285

== ENCOUNTER 2024-07-19 11:31 | Emergency (ER) | payer OTHER, SELFPAY ==
[2024-07-19 11:41] VITALS: BP 116/61; PULSE 105; RESP 14; TEMP 36.5; O2SAT 97; BMI 31.9
--- NOTE | 2024-07-19 12:38 | ED_ITS ---
HPI - Eye Problem General: Chief complaint: Eye Problems Stated complaint: Right side face swallow[place] Time Seen by Provider: 07/19/24 12:20 History of Present Illness: 48-year-old female presents to the [facility] ency room with complaint of right lower eyelid swelling. No effective vision has been going on for last couple days persistent seem to be spreading to the upper portion of her cheek. She denies any tooth pain or pressure. Related Data Home Medications Medication Instructions Recorded Confirmed sumatriptan succinate 100 mg 100 mg PO Q2H PRN Headache 11/12/19 05/28/24 tablet (Imitrex) bupropion HCl 300 mg 24 hr tablet, 300 mg PO QAM 01/31/21 05/28/24 extended release pantoprazole 40 mg tablet,delayed 40 mg PO DAILY 10/02/21 05/28/24 release hydralazine 10 mg tablet 10 mg PO BID 04/02/22 05/28/24 multivitamin 1 tab PO DAILY 04/02/22 05/28/24 Previous Rx's Medication Instructions Recorded zolmitriptan 5 mg tablet See Rx Instructions .Route 12/04/23 .COMPLEX #9 tabs furosemide 20 mg tablet 20 mg PO DAILY PRN edema #30 tabs 02/02/24 metoprolol succinate 25 mg 25 mg PO BID #180 tabs 04/30/24 tablet,extended release 24 hr albuterol sulfate 90 mcg/actuation 2 inh inhalation Q4H PRN shortness 06/28/24 aerosol inhaler of breath or wheezing #18 grams prednisone 20 mg tablet 20 mg PO TID #15 tabs 06/28/24 promethazine 25 mg tablet 25 mg PO Q6H PRN nausea and 06/28/24 vomiting #20 tabs Allergies Allergy/AdvReac Type Severity Reaction Status Date / Time codeine Allergy ADR-Itching Verified 05/28/24 10:53 Review of Systems Eyes: Denies: change in vision, blurry vision, photophobia or eye discomfort [facility] ED PFSH: Medical History Family history of coronary artery disease H/O supraventricular tachycardia Chronic migraine without aura, intractable, with status migrainosus Surgical History S/P ablation operation for arrhythmia Family History Other CAD (coronary artery disease) Cancer Diabetes Hypertension Social History Smoking and tobacco/nicotine status: former use of tobacco/nicotine Physical Exam HENMT: OTHER: Right lower eyelid swollen mildly inflamed. No involvement of the sclera of the conjunctiva no redness erythema visual acuity well-preserved Course Vital Signs: Vital signs: Vital Signs Temperature 97.7 F 07/19/24 11:41 Pulse Rate 98 07/19/24 12:55 Respiratory Rate 14 07/19/24 11:41 Blood Pressure 121/86 07/19/24 12:55 Pulse Oximetry 98 07/19/24 12:55 Oxygen Delivery Me thod Room Air 07/19/24 11:41 MDM - Eye Problem Medical Decision Making Mild swelling of the right lower eyelid. No involvement of the globe of the eye itself or the sclera. Started on cephalexin follow-up with primary care. No radiology studies performed this visit Discharge Plan Discharge Patient Disposition: Home Clinical Impression: Blepharitis of right lower eyelid Condition: Stable Prescriptions: No Action bupropion HCl 300 mg tablet extended release 24 hr 300 mg PO QAM hydralazine 10 mg tablet 10 mg PO BID pantoprazole 40 mg tablet,delayed release (DR/EC) 40 mg PO DAILY multivitamin Tablet 1 tab PO DAILY methylprednisolone acetate [Depo-Medrol] 40 mg/mL suspension 40 mg Infiltration ONCE Qty: 1 0RF bupivacaine (PF) 0.25 % (2.5 mg/mL) solution 10 ml Infiltration ONCE Qty: 1 0RF furosemide 20 mg tablet 20 mg PO DAILY PRN (Reason: edema) Qty: 30 5RF zolmitriptan 5 mg tablet See Rx Instructions .ROUTE .COMPLEX Qty: 9 0RF Dose Instruction: TAKE 1 TABLET BY MOUTH EVERY 2 HOURS NEEDED FOR MIGRAINE HEADACHE, DO NOT EXCEED 2 DOSES PER 24 HOURS Rx Instructions: TAKE 1 TABLET BY MOUTH EVERY 2 HOURS NEEDED FOR MIGRAINE HEADACHE, DO NOT EXCEED 2 DOSES PER 24 HOURS metoprolol succinate 25 mg tablet extended release 24 hr 25 mg PO BID Qty: 180 3RF sumatriptan succinate [Imitrex] 100 mg Tablet 100 mg PO Q2H PRN (Reason: Headache) prednisone 20 mg tablet 20 mg PO TID Qty: 15 0RF Rx Instructions: 1 p.o. 3 times daily x3 days, 1 p.o. twice daily x2 days, 1 p.o. daily x2 days promethazine 25 mg tablet 25 mg PO Q6H PRN (Reason: nausea and vomiting) Qty: 20 0RF albuterol sulfate 90 mcg/actuation HFA aerosol inhaler 2 inh INHALATION Q4H PRN (Reason: shortness of breath or wheezing) Qty: 18 0RF Discharge Orders: Discharge ED (Routine); Ordered 07/19/24 Ordered By: Don King Referrals: Mi Li FNP [Primary Care Provider] - Patient Instructions: Blepharitis (ED), Opioid Safety, Pain Management Coding Level of Care Code ED Business Technology Professor for Shirley Madrid
[2024-07-19 12:55] VITALS: BP 121/86; PULSE 98; O2SAT 98
== END 2024-07-19 12:56 | disposition home or self-care (01) ==
PROVIDERS: Emergency Provider Family Medicine; PCP Nurse Practitioner
DX: H01.002 Unspecified blepharitis right lower eyelid (principal)
CPT/HCPCS: 99283

== ENCOUNTER → 2025-01-26 10:55 | Outpatient (BNVA) | payer OTHER, SELFPAY | PROVIDERS: PCP Nurse Practitioner; Visit Provider Podiatrist Foot & Ankle Surgery | DX: M79.671 Pain in right foot (principal); M79.672 Pain in left foot; R20.0 Anesthesia of skin; R20.2 Paresthesia of skin; G62.9 Polyneuropathy, unspecified; M79.5 Residual foreign body in soft tissue | CPT/HCPCS: 73630; 99204 ==

== ENCOUNTER 2025-02-16 11:22 | Outpatient (CLI) | payer OTHER, SELFPAY ==
--- NOTE | 2025-02-16 11:20 | MM_ITS ---
WS: [id number] BILATERAL 3D TOMOSYNTHESIS DIGITAL SCREENING MAMMOGRAPHY WITH CAD CLINICAL INFORMATION: SCREENING HISTORY: Screening mammogram. Tender LEFT breast COMPARISON: 2023 TECHNIQUE: Bilateral CC and MLO views. FINDINGS: The breasts are composed of heterogeneous fibroglandular density tissue, which can limit the detection of small underlying mass lesions. Dense nodular breast tissue bilaterally similar to previous. Stable partially obscured nodular densities RIGHT greater than LEFT. Partially obscured nodule posterior depth RIGHT breast stable since 2018 measuring 1.5 cm Asymmetric density with slight architectural distortion posterior depth RIGHT breast centrally measuring 8 mm. This is best seen on the MLO view. Recommend further evaluation with RIGHT breast diagnostic mammography and ultrasound if persistent. MM/MM scr tomosynthesis [id number] IMPRESSION: DENSITY: The breasts are heterogeneously dense, which may obscure small masses. BI-RADS: 0 - Incomplete: Need additional imaging evaluation FOLLOW UP: Need Additional Imaging Recommend RIGHT breast diagnostic mammography and ultrasound if persistent.
== END 2025-02-16 11:23 | disposition home or self-care (01) ==
LOC: MOBLMAM 11:26
PROVIDERS: PCP Nurse Practitioner; Visit Provider Nurse Practitioner
DX: Z12.31 Encounter for screening mammogram for malignant neoplasm of breast (principal); R92.333 Mammographic heterogeneous density, bilateral breasts; R92.8 Other abnormal and inconclusive findings on diagnostic imaging of breast; N63.10 Unspecified lump in the right breast, unspecified quadrant
CPT/HCPCS: 77063; 77067

== ENCOUNTER 2025-03-14 13:35 | Outpatient (CLI) | payer OTHER, SELFPAY ==
--- NOTE | 2025-03-14 13:43 | MM_ITS ---
WS: [id number] RIGHT 3D TOMOSYNTHESIS DIGITAL MAMMOGRAPHY WITH CAD CLINICAL INFORMATION: ABNORMAL MAMMOGRAM HISTORY: Additional views COMPARISON: 2023 TECHNIQUE: 3 views of the right breast were obtained. FINDINGS: The right breast is composed of extremely dense tissue, which can limit the detection of small underlying mass lesions. Again seen are multiple partially obscured nodules posterior depth RIGHT breast. Previously described spiculated lesion not as well seen today. This partially compresses out. Ultrasound described below. ULTRASOUND BREAST RIGHT TECHNIQUE: Ultrasound right breast focused area of concern. CLINICAL INFORMATION: ABNORMAL MAMMOGRAM FINDINGS: Ultrasound central RIGHT breast posterior depth. Numerous simple cysts are visualized the largest measuring 1.0 x 1.3 cm at the 12 o'clock position 2 cm from the nipple and 2.2 x 1.0 cm at the 7 o'clock position 2 cm from the nipple. No other suspicious abnormalities. MM/MM diag RT tomosynthesis [id number] IMPRESSION: DENSITY: The breasts are heterogeneously dense, which may obscure small masses. BI-RADS: 2 - Benign FOLLOW UP: 1 Year Follow-up Recommend return to annual screening mammography.
== END 2025-03-14 13:36 | disposition home or self-care (01) ==
LOC: RAD 13:36
PROVIDERS: PCP Nurse Practitioner; Visit Provider Nurse Practitioner
DX: R92.8 Other abnormal and inconclusive findings on diagnostic imaging of breast (principal); R92.30 Dense breasts, unspecified; N63.15 Unspecified lump in the right breast, overlapping quadrants; N63.14 Unspecified lump in the right breast, lower inner quadrant
CPT/HCPCS: 76642; 77061; G0279

== ENCOUNTER 2025-03-14 14:45 | Outpatient (CLI) | payer OTHER, SELFPAY | END 2025-03-14 14:46 | LOC: RAD 03-21 06:29 | PROVIDERS: PCP Nurse Practitioner; Visit Provider Nurse Practitioner | DX: R20.0 Anesthesia of skin (principal); R20.2 Paresthesia of skin; G62.9 Polyneuropathy, unspecified; S90.859A Superficial foreign body, unspecified foot, initial encounter; W45.8XXA Other foreign body or object entering through skin, initial encounter | CPT/HCPCS: 11104; 99213 ==

== ENCOUNTER → 2025-03-22 14:37 | Outpatient (BNVA) | payer OTHER, SELFPAY | PROVIDERS: PCP Nurse Practitioner; Visit Provider Podiatrist Foot & Ankle Surgery | DX: M79.671 Pain in right foot (principal); M79.672 Pain in left foot; R20.0 Anesthesia of skin; R20.2 Paresthesia of skin; G62.9 Polyneuropathy, unspecified | CPT/HCPCS: 99214 ==

== ENCOUNTER → 2025-05-27 11:18 | Outpatient (BNVA) | payer OTHER, SELFPAY | PROVIDERS: PCP Nurse Practitioner; Visit Provider Internal Medicine Cardiovascular Disease | DX: I47.10 Supraventricular tachycardia, unspecified (principal); E78.5 Hyperlipidemia, unspecified; I10 Essential (primary) hypertension; Z87.891 Personal history of nicotine dependence | CPT/HCPCS: 99214 ==

== ENCOUNTER 2025-05-31 13:19 | Outpatient (CLI) | payer OTHER, SELFPAY ==
[2025-05-31 14:06] LABS: Cholesterol 218 mg/dL (0-200); HDL Cholesterol 32 mg/dL (60-100); Triglycerides 365 mg/dL (0-150)
== END 2025-05-31 13:20 | disposition home or self-care (01) ==
PROVIDERS: PCP Nurse Practitioner; Visit Provider Internal Medicine Cardiovascular Disease
DX: E78.5 Hyperlipidemia, unspecified (principal)
CPT/HCPCS: 36415; 80061